=== PATIENT | female | born 1955 | race Caucasian/White ===

== ENCOUNTER 2016-05-22 19:27 | Inpatient (IN) | payer MEDICARE ==
[2016-05-22 19:29] VITALS: BP 167/89; PULSE 105; RESP 15; TEMP 98.9; O2SAT 97
--- NOTE | 2016-05-22 19:58 | PD ---
Physical Exam Date Seen by Provider: May 22, 2016 Time Seen by Provider: 19:53 Narrative Patient seen in triage with Hx Type 2 DM, Renal Insufficiency, and reports of recent hospitalization for Diverticulitis and reports of Gastric Ulcer by Endoscope. Patient states Lower Abdominal Pain is worsening. Patient has nausea , but denies Vomitting. Has had some loose stools and mild dysuria. Patient reports chills, but no fever. Vital signs stable. Patient waiting for bed placement. Data Data Last Documented VS Vital Signs Date Time Temp Pulse Resp B/P Pulse Ox O2 Delivery O2 Flow Rate FiO2 05/22/16 19:29 98.9 105 15 167/89 97 Room Air [facility] Medical Record Reviewed: Yes Supervised Visit with SO: Yes Condition: Stable Albert Bro May 22, 2016 19:57
[2016-05-23] VITALS (9 sets, daily range): BP systolic 105–136; BP diastolic 69–96; PULSE 78–102; RESP 16–19; TEMP 96.2–100.1; O2SAT 92–98
[2016-05-23] MEDS ORDERED: LIPI20TA PO (00:04)
[2016-05-23] MEDS ORDERED: GEMF600T PO (00:04)
[2016-05-23] MEDS ORDERED: OMEP20TA PO (00:04)
[2016-05-23] MEDS ORDERED: BUSP5TAB PO (00:04)
[2016-05-23] MEDS ORDERED: GABA300C5 PO (00:04)
[2016-05-23] MEDS ORDERED: CYMB60CA PO (00:04)
[2016-05-23] MEDS ORDERED: GLIP5TAB8 PO (00:04)
[2016-05-23] MEDS ORDERED: METO50TA PO (00:04)
[2016-05-23] MEDS ORDERED: SYNT25TA PO (00:04)
[2016-05-23] MEDS ORDERED: BUSP10TA PO (00:04)
[2016-05-23] MEDS ORDERED: FOLI5CAP PO (00:04)
[2016-05-23] MEDS ORDERED: SODIUM CHLOR 0.9% 1000 ML INJ 1,000 ML IV SCH (00:16)
[2016-05-23] MEDS ORDERED: SODIUM CHLORIDE 0.9% FLUSH 10 ML FLUSH IV FLUSH PRN ×2 (00:30→02:45)
[2016-05-23] MEDS ORDERED: HYDROmorphone HCL PF 1 MG/ML VIAL IVS ONE (00:30)
[2016-05-23] MEDS ORDERED: ONDANSETRON HCL 4 MG/2 ML VIAL IVP ONE (00:30)
--- NOTE | 2016-05-23 00:44 | PD ---
HPI Chief Complaint: Abdominal Pain Time Seen by Provider: 00:16 Travel History International Travel<30 days: No Contact w/Intl Traveler<30days: No Traveled to known affect area: No History of Present Illness HPI 60-year-old female complains of pain in the left abdomen. It's worse with palpation. She's had diarrhea for 3 weeks. She goes to the bathroom about 4 times per day. She reports nausea. She's had no vomiting. The pain has been present for about a week or so. She was admitted to [facility] for diverticulitis and was discharged shortly thereafter. She reports her symptoms did not improve much. She states today the pain has been much worse. She just started tolerating oral intake yesterday. PFSH Past Medical History Depression: Yes Cardiovascular Problems: Yes Diabetes: Yes Patient Takes Glucophage: No Hypertension: Yes Myocardial Infarction: Yes Thyroid Disease: Yes Triglycerides - High: Yes Tetanus Vaccination: < 5 Years Influenza Vaccination: Yes ?: Not Past Surgical History Hysterectomy: Yes Other Surgery: Yes (carpal tunnel) Social History Alcohol Use: Yes Tobacco Use: Yes Substance Use: No Allergies-Medications (Allergen,Severity, Reaction): Coded Allergies: Sulfamethoxazole (Verified Allergy, Severe, Rash, 05/22/16) Trimethoprim (Verified Allergy, Severe, 05/22/16) Nalbuphine (Verified Allergy, Unknown, 05/22/16) Reported Meds & Prescriptions Reported Meds & Active Scripts Active Reported Gabapentin 300 Mg Cap 300 Mg PO HS Buspirone (Buspirone HCl) 10 Mg Tab 25 Mg PO TID Buspirone (Buspirone HCl) 5 Mg Tab 5 Mg PO BID Synthroid (Levothyroxine Sodium) 25 Mcg Tab 25 Mcg PO DAILY Omeprazole 20 Mg Tab 20 Mg PO DAILY Glipizide 5 Mg Tab 2.5 Mg PO BIDAC Take 30 minutes before a meal Lipitor (Atorvastatin Calcium) 20 Mg Tab 20 Mg PO HS Folic Acid 5 Mg Cap 5 Mg PO DAILY Metoprolol Tartrate 50 Mg Tab 50 Mg PO BID Cymbalta DR (Duloxetine HCl) 60 Mg Capdr 60 Mg PO DAILY Gemfibrozil 600 Mg Tab 600 Mg PO BIDAC Take 30 minutes prior to breakfast and dinner. Review of Systems Except as stated in HPI: all other systems reviewed are Neg Gastrointestinal: Positive: Abdominal Pain Physical Exam Narrative GENERAL: 60-year-old female pleasant well-nourished well-developed SKIN: Focused skin assessment warm/dry. HEAD: Atraumatic. Normocephalic. EYES: Pupils equal and round. No scleral icterus. No injection or drainage. ENT: No nasal bleeding or discharge. Mucous membranes pink and moist. NECK: Trachea midline. No JVD. CARDIOVASCULAR: Regular rate and rhythm. No murmur appreciated. RESPIRATORY: No accessory muscle use. Clear to auscultation. Breath sounds equal bilaterally. GASTROINTESTINAL: Tenderness to palpation primarily in the left lower quadrant. Soft. No sign of peritonitis MUSCULOSKELETAL: No obvious deformities. No clubbing. No cyanosis. No edema. NEUROLOGICAL: Awake and alert. No obvious cranial nerve deficits. Motor grossly within normal limits. Normal speech. PSYCHIATRIC: Appropriate mood and affect; insight and judgment normal. Data Data Last Documented VS Vital Signs Date Time Temp Pulse Resp B/P Pulse Ox O2 Delivery O2 Flow Rate FiO2 05/23/16 01:20 97 Nasal Cannula 2 05/22/16 23:56 18 05/22/16 19:29 98.9 105 167/89 Vital signs reviewed Orders Complete Blood Count With Diff (05/23/16 00:16) Comprehensive Metabolic Panel (05/23/16 00:16) Lipase (05/23/16 00:16) Ct Abd/Pel W Iv Contrast(Rout) (05/23/16 00:16) Iv Access Insert/Monitor (05/23/16 00:16) Ecg Monitoring (05/23/16 00:16) Oximetry (05/23/16 00:16) Ondansetron Inj (Zofran Inj) (05/23/16 00:30) Sodium Chlor 0.9% 1000 Ml Inj (Ns 1000 M (05/23/16 00:16) Sodium Chloride 0.9% Flush (Ns Flush) (05/23/16 00:30) Hydromorphone Pf Inj (Dilaudid Pf Inj) (05/23/16 00:30) Iohexol 350 Inj (Omnipaque 350 Inj) (05/23/16 02:14) Piperacil-Tazo 3.375 Gm Premix (Zosyn 3. (05/23/16 02:45) Admit Order (Ed Use Only) (05/23/16 02:37) Labs Laboratory Tests Test 05/23/16 00:22 White Blood Count 13.3 TH/MM3 Red Blood Count 4.09 MIL/MM3 Hemoglobin 12.5 GM/DL Hematocrit 36.5 % Mean Corpuscular Volume 89.2 FL Mean Corpuscular Hemoglobin 30.6 PG Mean Corpuscular Hemoglobin 34.3 % Concent Red Cell Distribution Width 13.5 % Platelet Count 425 TH/MM3 Mean Platelet Volume 7.9 FL Neutrophils (%) (Auto) 77.2 % Lymphocytes (%) (Auto) 10.1 % Monocytes (%) (Auto) 8.5 % Eosinophils (%) (Auto) 3.8 % Basophils (%) (Auto) 0.4 % Neutrophils # (Auto) 10.3 TH/MM3 Lymphocytes # (Auto) 1.3 TH/MM3 Monocytes # (Auto) 1.1 TH/MM3 Eosinophils # (Auto) 0.5 TH/MM3 Basophils # (Auto) 0.1 TH/MM3 CBC Comment DIFF FINAL Differential Comment Sodium Level 138 MEQ/L Potassium Level 3.7 MEQ/L Chloride Level 104 MEQ/L Carbon Dioxide Level 24.9 MEQ/L Anion Gap 9 MEQ/L Blood Urea Nitrogen 13 MG/DL Creatinine 1.05 MG/DL Estimat Glomerular Filtration 54 ML/MIN Rate Random Glucose 136 MG/DL Calcium Level 9.5 MG/DL Total Bilirubin 0.4 MG/DL Aspartate Amino Transf 32 U/L (AST/SGOT) Alanine Aminotransferase 21 U/L (ALT/SGPT) Alkaline Phosphatase 106 U/L Total Protein 7.8 GM/DL Albumin 3.2 GM/DL Lipase 402 U/L MDM Medical Decision Making Medical Screen Exam Complete: Yes Emergency Medical Condition: Yes Differential Diagnosis Constipation, Gastritis, Acute Cholecystitis, Biliary Colic, Pancreatitis, KIRK , Hepatitis, Bowel Obstruction, Cystitis, Mesenteric Ischemia, AAA, Appendicitis , Renal Stone/Hydronephrosis, GERD, perforated viscous Narrative Course CBC & BMP Diagram 05/23/16 00:22 LFTs normal Lipase 402 Last 24 hours Impressions Abdomen/Pelvis CT 05/23/16 0016 Signed Impressions: Service Date/Time: Monday, May 23, 2016 02:05 - CONCLUSION: 1. Abnormal sigmoid colon with wall thickening and pericolonic inflammatory change most likely representing a colitis or possibly diverticulitis. No abscess, significant free fluid, or free air is present. 2. Mild hepatomegaly with heterogeneous liver enhancement. 3. Coronary artery calcification and severe atherosclerotic disease of the aorta. Wilton Bergeron MD Patient has diverticulitis. Zosyn started here. IV fluids and Zofran started. Case discussed with Dr. Leggett. Diagnosis Primary Impression: Diverticulitis Qualified Code: K57.32 - Diverticulitis of large intestine without perforation or abscess without bleeding Additional Impression: Pancreatitis Admitting Information Admitting Physician Requests: Admit Condition: Stable Kade Harvey MD May 23, 2016 00:44
[2016-05-23 00:46] LABS: AUTOMATED NEUTROPHIL # 10.3 TH/MM3 (1.8-7.7); BASOPHIL # 0.1 TH/MM3 (0-0.2); BASOPHIL % 0.4 % (0.0-2.0); EOSINOPHIL # 0.5 TH/MM3 (0-0.4); EOSINOPHIL % 3.8 % (0.0-4.0); HEMATOCRIT 36.5 % (35.0-46.0); HEMO FLAGS DIFF FINAL; LYMPH % 10.1 % (9.0-44.0); LYMPHOCYTE # 1.3 TH/MM3 (1.0-4.8); MEAN CELL VOLUME 89.2 FL (80.0-100.0); MEAN CORPUSCULAR HEMOGLOBIN 30.6 PG (27.0-34.0); MEAN CORPUSCULAR HGB CONC 34.3 % (32.0-36.0); MONO % 8.5 % (0.0-8.0); NEUT % 77.2 % (16.0-70.0); PLATELET COUNT 425 TH/MM3 (150-450); RED BLOOD COUNT 4.09 MIL/MM3 (4.00-5.30); RED CELL DISTRIBUTION WIDTH 13.5 % (11.6-17.2); WHITE BLOOD COUNT 13.3 TH/MM3 (4.0-11.0)
[2016-05-23 00:58] LABS: ANION GAP 9 MEQ/L (5-15); AST (GOT) 32 U/L (15-37); BICARBONATE 24.9 MEQ/L (21.0-32.0); BLOOD UREA NITROGEN 13 MG/DL (7-18); CHLORIDE 104 MEQ/L (98-107); GLOMERULAR FILTRATION RATE 54 ML/MIN (>89); POTASSIUM 3.7 MEQ/L (3.5-5.1); SODIUM (NA) 138 MEQ/L (136-145)
[2016-05-23 01:06] LABS: ALKALINE PHOSPHATASE 106 U/L (45-117); ALT (GPT) 21 U/L (10-53); TOTAL BILIRUBIN ADULT 0.4 MG/DL (0.2-1.0)
[2016-05-23] MEDS ORDERED: IOHEXOL 350 MG/ML 10 ML VIAL (for RAD DIAG) IV ONE (02:14)
--- NOTE | 2016-05-23 02:26 | RADRPT ---
EXAM DATE/TIME: 05/23/2016 02:05 [facility] COMPARISON: No previous studies available for comparison. INDICATIONS : Lower abdominal pain. IV CONTRAST: 88 cc Omnipaque 350 (iohexol) IV ORAL CONTRAST: No oral contrast ingested. RADIATION DOSE: 12.64 CTDIvol (mGy) MEDICAL HISTORY : Hypertension. Diabetes mellitus type 2. Diverticulitis. SURGICAL HISTORY : Hysterectomy. ENCOUNTER: Initial ACUITY: 1 day PAIN SCALE: 5/10 LOCATION: lower quadrant abdomen TECHNIQUE: Volumetric scanning of the abdomen and pelvis was performed. Using automated exposure control and ad justment of the mA and/or kV according to patient size, radiation dose was kept as low as reasonably achievable to obtain optimal diagnostic quality images. FINDINGS: LOWER LUNGS: The visualized lower lungs are clear. There is coronary artery calcification. LIVER: The liver measures 19.5 cm in length and demonstrates heterogeneous density. No focal lesion is seen. There is no dilation of the biliary tree. No calcified gallstones. SPLEEN: Normal size without lesion. PANCREAS: Within normal limits. KIDNEYS: Normal in size and shape. There is no mass, stone or hydronephrosis. There is a 5 mm low-density les ion at the lower pole the right kidney that is too small to characterize. ADRENAL GLANDS: Within normal limits. VASCULAR: There is no aortic aneurysm. There is severe atherosclerotic disease. BOWEL/MESENTERY: The stomach and small bowel demonstrate no acute abnormality. There is no free intraperitoneal air o r fluid. The proximal sigmoid colon is abnormal. A 10 cm length segment demonstrates a normal wall th ickening and pericolonic inflammation. A few diverticula are visualized in this area. ABDOMINAL WALL: Within normal limits. RETROPERITONEUM: There is no lymphadenopathy. BLADDER: No wall thickening or mass. REPRODUCTIVE: The uterus is absent. INGUINAL: There is no lymphadenopathy or hernia. MUSCULOSKELETAL: There are degenerative changes of the lumbar spine. CONCLUSION: 1. Abnormal sigmoid colon with wall thickening and pericolonic inflammatory change most likely repres enting a colitis or possibly diverticulitis. No abscess, significant free fluid, or free air is prese nt. 2. Mild hepatomegaly with heterogeneous liver enhancement. 3. Coronary artery calcification and severe atherosclerotic disease of the aorta. Wilton Bergeron MD on May 23, 2016 at 2:19 Board Certified Radiologist. This report was verified electronically.
[2016-05-23] MEDS ORDERED: ONDANSETRON HCL 4 MG/2 ML VIAL IVP PRN (02:45)
[2016-05-23] MEDS ORDERED: NALOXONE HCL 0.4 MG/ML AMP IV PRN (02:45)
[2016-05-23] MEDS ORDERED: PIPERACIL-TAZO 3.375 GM PREMIX 50 ML IV ONE (02:45)
[2016-05-23] MEDS ORDERED: HYDROmorphone HCL PF 1 MG/ML VIAL IV PUSH PRN ×2 (02:45→06:45)
[2016-05-23] MEDS: SODIUM CHLOR 0.9% 1000 ML INJ 1,000 ML IV SCH ×3 (03:10→22:39)
--- NOTE | 2016-05-23 05:00 | HHI.HP ---
[facility] Non-Staff Admission Diagnosis Diverticulitis Diagnoses: Chief Complaint: Abdominal pain, diarrhea Travel History International Travel<30 Days: No Contact w/Intl Traveler <30 Da: No Traveled to Known Affected Are: No History of Present Illness 60 y/o female with history of HTN, DM, HLD, Hypothyroid, gerd and neuropathy presented to the ED with complaints of severe abdominal pain for 1 week. Patient was admitted at [facility] for 5 days a week ago for diverticulitis and discharged home with no medications. Since discharge she has continued to have constant diarrhea, severe LLQ abdominal pain and vomiting. When she was first admitted to [facility] she had black color and red color stools, and states today that he started to get dark again. She states she had an EGD performed at [facility], but was only told she had an irritated ulcer. She sees Dr. Ford for outpatient GI, and states last colonoscopy was one year ago, with no problems. Review of Systems Constitutional: COMPLAINS OF: Fever, DENIES: Chills Cardiovascular: DENIES: Chest pain, Lower Extremity Edema Gastrointestinal: COMPLAINS OF: Abdominal pain, Black stools, Bloody stools, Diarrhea, Nausea, DENIES: Vomiting Genitourinary: DENIES: Hematuria, Dysuria Musculoskeletal: DENIES: Back pain, Neck pain Integumentary: DENIES: Rash Hematologic/lymphatic: DENIES: Lymphadenopathy Immunologic/allergic: DENIES: Urticaria Neurologic: DENIES: Headache Past Family Social History Past Medical History HTN OK x2 CHF DM GERD Hypothyroidism Neuropathy COPD Hep B Past Surgical History Hysterectomy Carpel tunnel Cervical Fusion Wired Jaw Reported Medications Reported Meds & Active Scripts Active Reported Gabapentin 300 Mg Cap 300 Mg PO HS Buspirone (Buspirone HCl) 10 Mg Tab 25 Mg PO TID Buspirone (Buspirone HCl) 5 Mg Tab 5 Mg PO BID Synthroid (Levothyroxine Sodium) 25 Mcg Tab 25 Mcg PO DAILY Omeprazole 20 Mg Tab 20 Mg PO DAILY Glipizide 5 Mg Tab 2.5 Mg PO BIDAC Take 30 minutes before a meal Lipitor (Atorvastatin Calcium) 20 Mg Tab 20 Mg PO HS Folic Acid 5 Mg Cap 5 Mg PO DAILY Metoprolol Tartrate 50 Mg Tab 50 Mg PO BID Cymbalta DR (Duloxetine HCl) 60 Mg Capdr 60 Mg PO DAILY Gemfibrozil 600 Mg Tab 600 Mg PO BIDAC Take 30 minutes prior to breakfast and dinner. Allergies: Coded Allergies: Sulfamethoxazole (Verified Allergy, Severe, Rash, 05/22/16) Trimethoprim (Verified Allergy, Severe, 05/22/16) Nalbuphine (Verified Allergy, Unknown, 05/22/16) Active Ordered Medications Current Medications Medications (Trade) Dose Ordered Sig/Alfredo Route Start Time Stop Time Status Last Admin (NS 1000 ml Inj) 1,000 ml @ 100 mls/hr Q10H IV 05/23/16 02:39 05/23/16 03:10 (NS Flush) 2 ml UNSCH PRN IV FLUSH 05/23/16 02:45 (NS Flush) 2 ml BID IV FLUSH 05/23/16 09:00 (Zofran Inj) 4 mg Q6H PRN IVP 05/23/16 02:45 (Lovenox Inj) 40 mg Q24H SQ 05/23/16 09:00 Naloxone HCl 0.4 mg 0.4 mg UNSCH PRN IV 05/23/16 02:45 (Zosyn 4.5 Gm Premix) 100 ml @ 200 mls/hr Q6H IV 05/23/16 09:00 (Dilaudid Pf Inj) 0.2 mg Q4H PRN IV PUSH 05/23/16 02:45 05/23/16 04:25 Family History Mom: Diverticulitis, DM Maternal Grandma: CVA Social History Tobacco use: 1/2 PPD Alcohol use: Denies, Quit many years ago, prior she was a binge drinker Illicit drug use: Denies Physical Exam Vital Signs Vital Signs Date Time Temp Pulse Resp B/P Pulse Ox O2 Delivery O2 Flow Rate FiO2 05/23/16 03:12 98.4 83 18 131/76 95 Room Air 05/23/16 01:20 97 Nasal Cannula 2 05/22/16 23:56 18 05/22/16 19:29 98.9 105 15 167/89 97 Room Air Physical Exam GENERAL: This is a well-nourished, well-developed patient, in severe pain. SKIN: No rashes, ecchymoses or lesions. Cool and dry. HEAD: Atraumatic. Normocephalic. No temporal or scalp tenderness. EYES: Pupils equal round and reactive. Extraocular motions intact. ENT: Nose without bleeding, purulent drainage or septal hematoma. Airway patent. NECK: Trachea midline. No JVD or lymphadenopathy. Supple, nontender, no meningeal signs. CARDIOVASCULAR: Regular rate and rhythm without murmurs, gallops, or rubs. RESPIRATORY: Clear to auscultation. Breath sounds equal bilaterally. No wheezes , rales, or rhonchi. GASTROINTESTINAL: Abdomen soft, LLQ severe tenderness, nondistended. No hepato- splenomegaly, or palpable masses. MUSCULOSKELETAL: Extremities without clubbing, cyanosis, or edema. No joint tenderness, effusion, or edema noted. No calf tenderness. NEUROLOGICAL: Awake and alert. Motor and sensory grossly within normal limits. Normal speech. Laboratory Laboratory Tests Test 05/23/16 00:22 White Blood Count 13.3 Red Blood Count 4.09 Hemoglobin 12.5 Hematocrit 36.5 Mean Corpuscular Volume 89.2 Mean Corpuscular Hemoglobin 30.6 Mean Corpuscular Hemoglobin 34.3 Concent Red Cell Distribution Width 13.5 Platelet Count 425 Mean Platelet Volume 7.9 Neutrophils (%) (Auto) 77.2 Lymphocytes (%) (Auto) 10.1 Monocytes (%) (Auto) 8.5 Eosinophils (%) (Auto) 3.8 Basophils (%) (Auto) 0.4 Neutrophils # (Auto) 10.3 Lymphocytes # (Auto) 1.3 Monocytes # (Auto) 1.1 Eosinophils # (Auto) 0.5 Basophils # (Auto) 0.1 CBC Comment DIFF FINAL Differential Comment Sodium Level 138 Potassium Level 3.7 Chloride Level 104 Carbon Dioxide Level 24.9 Anion Gap 9 Blood Urea Nitrogen 13 Creatinine 1.05 Estimat Glomerular Filtration 54 Rate Random Glucose 136 Calcium Level 9.5 Total Bilirubin 0.4 Aspartate Amino Transf 32 (AST/SGOT) Alanine Aminotransferase 21 (ALT/SGPT) Alkaline Phosphatase 106 Total Protein 7.8 Albumin 3.2 Lipase 402 Result Diagram: 05/23/16 0022 05/23/16 0022 Imaging Last Impressions Abdomen/Pelvis CT 05/23/16 0016 Signed Impressions: Service Date/Time: Monday, May 23, 2016 02:05 - CONCLUSION: 1. Abnormal sigmoid colon with wall thickening and pericolonic inflammatory change most likely representing a colitis or possibly diverticulitis. No abscess, significant free fluid, or free air is present. 2. Mild hepatomegaly with heterogeneous liver enhancement. 3. Coronary artery calcification and severe atherosclerotic disease of the aorta. Witlon Bergeron MD Assessment and Plan Problem List: (1) Diverticulitis ICD Code: K57.92 Status: Acute (2) Leukocytosis ICD Code: D72.829 Status: Acute (3) Pancreatitis ICD Code: K85.90 Status: Acute (4) Black stools ICD Code: K92.1 Status: Acute Assessment and Plan 60 y/o female with history of HTN, DM, HLD, Hypothyroid, gerd and neuropathy presented to the ED with complaints of severe abdominal pain for 1 week. Diverticulitis/pancreatitis Images reviewed: Abdominal/pelvis CT shows abnormal sigmoid colon with wall thickening and pericolonic inflammatory change most likely representing a colitis or possibly diverticulitis. No abscess, significant free fluid, or free air is present. Labs: Lipase 402 -Supportive IVF -Pain management with IV Dilaudid -Zosyn IV -Lipase in a.m. -Nothing by mouth, antiemetics as needed Leukocytosis Labs: WBCs 13.3, neutrophils 77% -Continue IV antibiotics as above -CBC in a.m. Black stools, patient states on and off black colored stools Labs: Hgb: 12.5 -Occult stool -Protonix IV -Serial H&H DVT prophylaxis: Lovenox Written by Shanice LEUNG, acting as scribe for Dr. Leggett on 05/23/16 at 0445. All or portions of this note were transcribed by scribe [Shanice LEUNG]. I , Dr. Leslie Leggett personally performed the history, physical exam, and medical decision making; and confirmed the accuracy of the information in the transcribed note. Authenticated by Dr. Leslie Leggett on 05/23/16 at 0445. Discussed Condition With Patient, RN and ED physician Physician Certification 2 Midnight Certification Type: Admission for Inpatient Services Order for Inpatient Services The services are ordered in accordance with Medicare regulations or non- Medicare payer requirements, as applicable. In the case of services not specified as inpatient-only, they are appropriately provided as inpatient services in accordance with the 2-midnight benchmark. Estimated LOS (days): 2 days is the estimated time the patient will need to remain in the hospital, assuming treatment plan goals are met and no additional complications. Post-Hospital Plan: Home Problem Qualifiers (1) Diverticulitis: Qualified Code: K57.32 - Diverticulitis of large intestine without perforation or abscess without bleeding (2) Pancreatitis: Shanice Julian May 23, 2016 05:00 Leslie Leggett MD May 23, 2016 08:08
[2016-05-23] MEDS ORDERED: HYDROmorphone HCL PF 1 MG/ML VIAL IV PUSH ONE (05:15)
[2016-05-23] MEDS: PANTOPRAZOLE SODIUM 40 MG VIAL IV PUSH SCH ×2 (05:55→15:43)
[2016-05-23 06:03] LABS: AUTOMATED NEUTROPHIL # 6.2 TH/MM3 (1.8-7.7); BASOPHIL % 0.4 % (0.0-2.0); EOSINOPHIL # 0.4 TH/MM3 (0-0.4); EOSINOPHIL % 4.3 % (0.0-4.0); HEMATOCRIT 35.2 % (35.0-46.0); HEMO FLAGS DIFF FINAL; LYMPH % 13.5 % (9.0-44.0); LYMPHOCYTE # 1.1 TH/MM3 (1.0-4.8); MEAN CELL VOLUME 88.9 FL (80.0-100.0); MEAN CORPUSCULAR HEMOGLOBIN 30.6 PG (27.0-34.0); MEAN CORPUSCULAR HGB CONC 34.5 % (32.0-36.0); MONO % 7.2 % (0.0-8.0); NEUT % 74.6 % (16.0-70.0); PLATELET COUNT 405 TH/MM3 (150-450); RED BLOOD COUNT 3.96 MIL/MM3 (4.00-5.30); RED CELL DISTRIBUTION WIDTH 13.4 % (11.6-17.2); WHITE BLOOD COUNT 8.3 TH/MM3 (4.0-11.0)
[2016-05-23 06:28] LABS: ALKALINE PHOSPHATASE 99 U/L (45-117); ALT (GPT) 21 U/L (10-53); ANION GAP 8 MEQ/L (5-15); AST (GOT) 28 U/L (15-37); BICARBONATE 24.9 MEQ/L (21.0-32.0); BLOOD UREA NITROGEN 14 MG/DL (7-18); CHLORIDE 105 MEQ/L (98-107); GLOMERULAR FILTRATION RATE 50 ML/MIN (>89); SODIUM (NA) 138 MEQ/L (136-145); TOTAL BILIRUBIN ADULT 0.4 MG/DL (0.2-1.0)
[2016-05-23] MEDS: PIPERACIL-TAZO 4.5 GM PREMIX 100 ML IV SCH ×2 (08:08→15:38)
[2016-05-23] MEDS: SODIUM CHLORIDE 0.9% FLUSH 10 ML FLUSH IV FLUSH SCH ×2 (08:09→20:20)
[2016-05-23] MEDS ORDERED: ENOXAPARIN SODIUM 40 MG/0.4 ML SYRINGE SQ SCH (09:00)
[2016-05-23] MEDS ORDERED: FOLIC ACID 1 MG TAB PO SCH (09:00)
[2016-05-23] MEDS: DULoxetine HCl DR 60 MG CAP PO SCH (09:32)
[2016-05-23] MEDS: METOPROLOL TARTRATE 50 MG TAB PO SCH ×2 (09:32→20:21)
[2016-05-23] MEDS: busPIRone HCL 5 MG TAB PO SCH ×2 (09:32→20:21)
[2016-05-23] MEDS: PANTOPRAZOLE SOD 20 MG DELAYED RELEASE TAB PO SCH (09:32)
[2016-05-23] MEDS: LEVOTHYROXINE SODIUM 25 MCG TAB PO SCH (09:34)
[2016-05-23 11:36] LABS: HEMATOCRIT 36.7 % (35.0-46.0); REVIEW FLAG FINAL
--- NOTE | 2016-05-23 11:48 | HHI.PR ---
Subjective Remarks f/u diverticulitis Patient was found sitting comfortably in bed putting on lotion. She stated that she contused abdominal pain. Patient stated that she was feels like she needs a bowel movement but she hasn't had a bowel movement. She stated that when she has a bowel movement stools are soft. She denies any diarrhea. Patient denied nausea vomiting. She denied any black stools. Objective Vitals Vital Signs Date Time Temp Pulse Resp B/P Pulse Ox O2 Delivery O2 Flow Rate FiO2 05/23/16 09:34 89 17 125/78 98 Nasal Cannula 2 05/23/16 07:09 98.1 88 17 131/76 98 Nasal Cannula 2 05/23/16 07:09 18 05/23/16 07:09 98.0 88 16 131/76 98 Nasal Cannula 2 05/23/16 07:04 17 05/23/16 07:03 17 05/23/16 07:03 17 05/23/16 05:55 98.1 78 18 136/96 98 Nasal Cannula 2 05/23/16 03:12 98.4 83 18 131/76 95 Room Air 05/23/16 01:20 97 Nasal Cannula 2 05/22/16 23:56 18 05/22/16 19:29 98.9 105 15 167/89 97 Room Air Result Diagram: 05/23/16 1130 05/23/16 0539 Objective Remarks GENERAL: in NAD CARDIOVASCULAR: Regular rate and rhythm without murmurs, gallops, or rubs. RESPIRATORY: Breath sounds equal bilaterally. No accessory muscle use. GASTROINTESTINAL: Abdomen soft, positive for diffuse mild tenderness in the abdomen, nondistended. MUSCULOSKELETAL: No cyanosis, or edema. BACK: Nontender without obvious deformity. No CVA tenderness. Medications and IVs Current Medications Ondansetron HCl 4 mg 4 mg ONCE ONCE IVP Last administered on 05/23/16 00:30; Start 05/23/16 at 00:30; Stop 05/23/16 at 00:31; Status DC Sodium Chloride (NS 1000 ml Inj) 1,000 ml @ 1,000 mls/hr Q1H IV Last administered on 05/23/16 00:29; Start 05/23/16 at 00:16; Stop 05/23/16 at 01:15 ; Status DC Sodium Chloride (NS Flush) 2 ml UNSCH PRN IV FLUSH FLUSH AFTER USING IV ACCESS ; Start 05/23/16 at 00:30; Stop 05/23/16 at 02:47; Status DC Hydromorphone HCl (Dilaudid Pf Inj) 1 mg ONCE ONCE IVS Last administered on 00:30; Start 05/23/16 at 00:30; Stop 05/23/16 at 00:31; Status DC Iohexol 88 ml 88 ml STK-MED ONCE IV Last administered on 05/23/16 02:14; Start 05/23/16 at 02:14; Stop 05/23/16 at 02:15; Status DC Piperacillin Sod/ Tazobactam Sod 50 ml @ 100 mls/hr ONCE ONCE IV Last administered on 05/23/16 03:11; Start 05/23/16 at 02:45; Stop 05/23/16 at 03:14 ; Status DC Sodium Chloride (NS 1000 ml Inj) 1,000 ml @ 100 mls/hr Q10H IV Last administered on 05/23/16 03:10; Start 05/23/16 at 02:39 Sodium Chloride (NS Flush) 2 ml UNSCH PRN IV FLUSH FLUSH AFTER USING IV ACCESS ; Start 05/23/16 at 02:45 Sodium Chloride (NS Flush) 2 ml BID IV FLUSH ; Start 05/23/16 at 09:00 Ondansetron HCl (Zofran Inj) 4 mg Q6H PRN IVP NAUSEA OR VOMITING; Start at 02:45 Enoxaparin Sodium (Lovenox Inj) 40 mg Q24H SQ Last administered on 05/23/16 08 :08; Start 05/23/16 at 09:00 Naloxone HCl 0.4 mg 0.4 mg UNSCH PRN IV SEE LABEL COMMENTS; Start 05/23/16 at 02:45 Piperacillin Sod/ Tazobactam Sod (Zosyn 4.5 Gm Premix) 100 ml @ 200 mls/hr Q6H IV Last administered on 05/23/16 08:08; Start 05/23/16 at 09:00 Hydromorphone HCl (Dilaudid Pf Inj) 0.2 mg Q4H PRN IV PUSH PAIN >5 Last administered on 05/23/16 04:25; Start 05/23/16 at 02:45; Stop 05/23/16 at 05:04 ; Status DC Pantoprazole Sodium (Protonix Inj) 40 mg Q12H IV PUSH Last administered on 05/23 05:55; Start 05/23/16 at 05:00 Hydromorphone HCl (Dilaudid Pf Inj) 1 mg Q4H PRN IV PUSH PAIN >5 Last administered on 05/23/16 11:23; Start 05/23/16 at 06:45 Hydromorphone HCl (Dilaudid Pf Inj) 1 mg ONCE ONCE IV PUSH Last administered on 05/23/16 05:55; Start 05/23/16 at 05:15; Stop 05/23/16 at 05:16; Status DC Atorvastatin Calcium (Lipitor) 20 mg HS PO ; Start 05/23/16 at 21:00 Buspirone HCl (Buspar) 5 mg BID PO Last administered on 05/23/16 09:32; Start 05/23/16 at 09:00 Duloxetine HCl (Cymbalta Dr) 60 mg DAILY PO Last administered on 05/23/16 09: 32; Start 05/23/16 at 09:00 Folic Acid (Folate) 5 mg DAILY PO ; Start 05/23/16 at 09:00; Status UNV Gabapentin (Neurontin) 300 mg HS PO ; Start 05/23/16 at 21:00 Gemfibrozil (Lopid) 600 mg BIDAC PO ; Start 05/23/16 at 16:00 Glipizide (Glucotrol) 2.5 mg BIDAC PO ; Start 05/23/16 at 16:00 Levothyroxine Sodium (Synthroid) 25 mcg DAILY@06 PO Last administered on 09:34; Start 05/23/16 at 09:00 Metoprolol Tartrate (Lopressor) 50 mg BID PO Last administered on 05/23/16 09: 32; Start 05/23/16 at 09:00 Pantoprazole Sodium (Protonix) 20 mg DAILY PO Last administered on 05/23/16 09 :32; Start 05/23/16 at 09:00 A/P Problem List: (1) Diverticulitis ICD Code: K57.92 Status: Acute (2) Leukocytosis ICD Code: D72.829 Status: Acute (3) Pancreatitis ICD Code: K85.90 Status: Acute (4) Black stools ICD Code: K92.1 Status: Acute Assessment and Plan 60 y/o female with history of HTN, DM, HLD, Hypothyroid, gerd and neuropathy presented to the ED with complaints of severe abdominal pain for 1 week. Diverticulitis -Abdominal/pelvis CT shows abnormal sigmoid colon with wall thickening and pericolonic inflammatory change most likely representing a colitis or possibly diverticulitis. No abscess, significant free fluid, or free air is present. -Continue with IV Zosyn. Continue with supportive care with IV fluids and pain management. -Currently patient is nothing by mouth but will allow clear liquid diet and advance as tolerated. Pancreatitis -Mild elevation of lipase. -Continue with supportive care as above. Leukocytosis - WBCs 13.3, neutrophils 77% -Resolved secondary to hemoconcentration. Questionable Black stool -She had no bowel movement while hospitalized several still pending Hemoccult stool. -Hemoglobin then remained stable. -On IV Protonix. -If hemoglobin remains stable patient can be scoped as outpatient. DVT prophylaxis -Due to questionable black stools will discontinue Lovenox and start SCDs. Problem Qualifiers (1) Diverticulitis: Qualified Code: K57.32 - Diverticulitis of large intestine without perforation or abscess without bleeding (2) Pancreatitis: Dinora Vasquez MD May 23, 2016 11:47
[2016-05-23] MEDS ORDERED: methylPREDNISolone SOD SUCC 40 MG/1 ML VIAL IV PUSH SCH (13:30)
[2016-05-23] MEDS: diphenhydrAMINE HCL 50 MG/ML VIAL IV PUSH SCH ×2 (13:42→20:20)
[2016-05-23] MEDS: GEMFIBROZIL 600 MG TAB PO SCH (15:43)
[2016-05-23] MEDS: glipiZIDE 5 MG TAB PO SCH (15:47)
[2016-05-23] MEDS: FOLIC ACID 1 MG TAB PO SCH (15:48)
[2016-05-23] MEDS ORDERED: EPINEPHrine HCL (1:1000) 1 MG/ML VIAL IM ONE (17:30)
[2016-05-23] MEDS ORDERED: CIPROFLOXACIN 400 MG PREMIX 200 ML IV SCH (18:00)
[2016-05-23 19:12] LABS: HEMATOCRIT 33.4 % (35.0-46.0); REVIEW FLAG FINAL
[2016-05-23] MEDS ORDERED: ERTAPENEM SODIUM 1000 MG VIAL IM SCH (19:15)
[2016-05-23] MEDS ORDERED: metroNIDAZOLE 500 MG INJ 100 ML IV SCH (20:00)
[2016-05-23] MEDS: methylPREDNISolone SOD SUCC 40 MG/1 ML VIAL IV PUSH SCH (20:20)
[2016-05-23] MEDS: ATORVASTATIN 20 MG TAB PO SCH (20:21)
[2016-05-23] MEDS: GABAPENTIN 300 MG CAP PO SCH (20:21)
[2016-05-23] MEDS: ACETAMINOPHEN/HYDROcodone 325 MG/5 MG TAB PO PRN (20:32)
[2016-05-23] MEDS: ERTAPENEM 1,000 MG/NS 100 ML IV SCH ×2 (22:21)
[2016-05-24] VITALS: BP 104/70; PULSE 88; RESP 18; TEMP 96; O2SAT 94
[2016-05-24] MEDS: ACETAMINOPHEN/HYDROcodone 325 MG/5 MG TAB PO PRN ×3 (03:50→23:03)
[2016-05-24 04:00] VITALS: BP 126/98; PULSE 82; RESP 19; TEMP 97.2; O2SAT 92
[2016-05-24] MEDS: diphenhydrAMINE HCL 50 MG/ML VIAL IV PUSH SCH ×2 (05:05→22:42)
[2016-05-24] MEDS: LEVOTHYROXINE SODIUM 25 MCG TAB PO SCH (05:06)
[2016-05-24] MEDS: glipiZIDE 5 MG TAB PO SCH ×2 (05:06→15:32)
[2016-05-24] MEDS: GEMFIBROZIL 600 MG TAB PO SCH ×2 (05:06→15:32)
[2016-05-24] MEDS: SODIUM CHLOR 0.9% 1000 ML INJ 1,000 ML IV SCH ×2 (05:11→13:55)
[2016-05-24 07:44] LABS: HEMATOCRIT 33.3 % (35.0-46.0); MEAN CELL VOLUME 91.1 FL (80.0-100.0); MEAN CORPUSCULAR HEMOGLOBIN 29.8 PG (27.0-34.0); MEAN CORPUSCULAR HGB CONC 32.7 % (32.0-36.0); PLATELET COUNT 363 TH/MM3 (150-450); RED BLOOD COUNT 3.65 MIL/MM3 (4.00-5.30); RED CELL DISTRIBUTION WIDTH 13.8 % (11.6-17.2); REVIEW FLAG FINAL; WHITE BLOOD COUNT 21.7 TH/MM3 (4.0-11.0)
[2016-05-24 08:00] VITALS: BP 105/73; PULSE 71; RESP 20; TEMP 97.4; O2SAT 93
[2016-05-24 08:09] LABS: BICARBONATE 19.1 MEQ/L (21.0-32.0); POTASSIUM 4.2 MEQ/L (3.5-5.1)
[2016-05-24] MEDS: PANTOPRAZOLE SOD 20 MG DELAYED RELEASE TAB PO SCH (10:03)
[2016-05-24] MEDS: DULoxetine HCl DR 60 MG CAP PO SCH (10:03)
[2016-05-24] MEDS: FOLIC ACID 1 MG TAB PO SCH (10:03)
[2016-05-24] MEDS: busPIRone HCL 5 MG TAB PO SCH ×2 (10:03→22:42)
[2016-05-24] MEDS: METOPROLOL TARTRATE 50 MG TAB PO SCH ×2 (10:04→22:42)
[2016-05-24] MEDS: SODIUM CHLORIDE 0.9% FLUSH 10 ML FLUSH IV FLUSH SCH ×2 (10:05→22:43)
[2016-05-24] MEDS: methylPREDNISolone SOD SUCC 40 MG/1 ML VIAL IV PUSH SCH ×2 (10:05→22:41)
[2016-05-24 12:00] VITALS: BP 130/85; PULSE 76; RESP 20; TEMP 96.6; O2SAT 99
--- NOTE | 2016-05-24 13:17 | HHI.PR ---
Subjective Remarks Patient seen and examined this am, vitals are stable and patient is afebrile. Saturating 93% on room air. Reporting abdominal pain. She feels like she needs to have a bowel movement. She feels like her abdominal pain is worse today than yesterday. She is consuming sips of water clear liquids by mouth. Objective Vital Signs Date Time Temp Pulse Resp B/P Pulse Ox O2 Delivery O2 Flow Rate FiO2 05/24/16 08:00 97.4 71 20 105/73 93 05/24/16 04:50 18 05/24/16 04:00 97.2 82 19 126/98 92 05/24/16 00:00 96.0 88 18 104/70 94 05/23/16 20:00 96.2 85 19 128/82 92 05/23/16 16:00 99.0 102 16 105/73 93 05/23/16 14:00 100.1 91 16 113/69 93 I/O 05/23/16 05/23/16 05/23/16 05/24/16 05/24/16 05/24/16 07:00 15:00 23:00 07:00 15:00 23:00 Intake Total 240 ml 240 ml Balance 240 ml 240 ml Intake Oral 240 ml 240 ml # Voids 1 3 2 # Bowel Movements 1 Result Diagram: 05/24/16 0600 05/24/16 0600 Imaging Last Impressions Abdomen/Pelvis CT 05/23/16 0016 Signed Impressions: Service Date/Time: Monday, May 23, 2016 02:05 - CONCLUSION: 1. Abnormal sigmoid colon with wall thickening and pericolonic inflammatory change most likely representing a colitis or possibly diverticulitis. No abscess, significant free fluid, or free air is present. 2. Mild hepatomegaly with heterogeneous liver enhancement. 3. Coronary artery calcification and severe atherosclerotic disease of the aorta. Wilton Bergeron MD Objective Remarks GENERAL: Uncomfortable-appearing SKIN: Warm and dry. HEAD: Normocephalic. EYES: No scleral icterus. No injection or drainage. NECK: Supple, trachea midline. No JVD or lymphadenopathy. CARDIOVASCULAR: Regular rate and rhythm without murmurs, gallops, or rubs. RESPIRATORY: Breath sounds equal bilaterally. No accessory muscle use. GASTROINTESTINAL: Abdomen soft, tenderness to palpation of lower abdominal quadrant, left worse than right. There is no rebound or guarding. MUSCULOSKELETAL: No cyanosis, or edema. BACK: Nontender without obvious deformity. A/P Problem List: (1) Diverticulitis ICD Code: K57.92 (2) Leukocytosis ICD Code: D72.829 (3) Pancreatitis ICD Code: K85.90 (4) Black stools ICD Code: K92.1 Assessment and Plan 60 y/o female with history of HTN, DM, HLD, Hypothyroid, gerd and neuropathy presented to the ED with complaints of severe abdominal pain for 1 week, CT suspicious for diverticulitis. 1. Diverticulitis -Abdominal/pelvis CT shows abnormal sigmoid colon with wall thickening and pericolonic inflammatory change most likely representing a colitis or possibly diverticulitis. No abscess, significant free fluid, or free air is present. -Per review of EMR patient has received cipro, zosyn, and flagyl. Currently just on Ertapenem 05/23 -Currently patient is on clear liquid diet and advance as tolerated. - due to significant worse in leukocytosis and patients worsening sx, will consult GI 2. Pancreatitis -Mild elevation of lipase, improving. -Continue with supportive care as above. 3. Leukocytosis - WBCs 13.3, neutrophils 77% on admission, was down trending, now elevated today 21.7 4. Black stools? -She had no bowel movement while hospitalized, Hemoccult stool still pending. -Hemoglobin then remained stable. -On IV Protonix. -If hemoglobin remains stable patient can be scoped as outpatient. 5. CARLOS - Cr on admission 1.05, now 1.52 - avoid nephrotoxic agents - continue IV hydration - continue to monitor closely DVT prophylaxis -Due to questionable black stools will hold Lovenox and start SCDs. Fluids: NS @ 100 cc/hr Electrolytes: currently wnl Nutrition: NPO Discharge Planning DC pending clinical improvement. GI consult is now pending. Problem Qualifiers (1) Diverticulitis: Qualified Code: K57.32 - Diverticulitis of large intestine without perforation or abscess without bleeding (2) Pancreatitis: Violette Joaquin MD R3 May 24, 2016 13:17
--- NOTE | 2016-05-24 15:59 | PD.CONS ---
HPI History of Present Illness This is a 60 year old female who came to the ER for evaluation of abdominal pain. She reports that she was hospitalized from May 09- at [facility] for abdominal pain and bloody diarrhea. She states that she started having diarrhea a week prior to this hospitalization and that it consisted of a mixture of black tarry stool and bright red blood. She did not have abdominal pain initially. She then developed abdominal pain and went to [facility]. She states that while she was there she had no imaging done, but was told that she had diverticulitis. She specifically states that she did not have a CT scan. She was evaluated with an EGD by Dr. Fajardo and she reports that she was told that she had an ulcer. She states she was discharged home on 05/15 without any medications- she denies being given any prescriptions specifically for ulcer or diverticulitis. She states when she was discharged home, she was feeling better intermittently, but that she continued to have intermittent pain and bleeding. Her symptoms worsened on and became more severe. She has severe diffuse abdominal pain that is worse in the LLQ. This is now constant and she reports that it has not improved since being admitted. She has nausea without vomiting. She has mild bloating. She reports that she has not had any diarrhea or bleeding since she was admitted. She has a rash that developed after receiving a dose of Cipro. She was started on Solumedrol. She reports that she has had 2 prior episodes of diverticulitis , the last time in 2014. She reports that she was very sick "on the verge of " and was told that she needed part of her colon removed, but that she did not have insurance and therefore she did not follow up. She reports that her colonoscopy was about a year ago with Dr. Fajardo and that she had "11 precancerous polyps removed." (Maria Isabel Wisdom) PFSH Past Medical History HTN NV x2 CHF DM GERD Hypothyroidism Neuropathy COPD Hep B, denies chronic hepatitis b Diverticulitis Colon polyps PUD Past Surgical History Hysterectomy Carpel tunnel Cervical Fusion Wired Jaw Colonoscopy EGD (Maria Isabel Wisdom) Coded Allergies: Sulfamethoxazole (Verified Allergy, Severe, Rash, 05/22/16) Trimethoprim (Verified Allergy, Severe, 05/22/16) Ciprofloxacin (Verified Allergy, Intermediate, Flushing, red raised rash, 05/23/16) Nalbuphine (Verified Allergy, Unknown, 05/22/16) Medications Allergies Coded Allergies Type Severity Reaction Last Updated Verified Sulfamethoxazole Allergy Severe Rash 05/22/16 Yes Trimethoprim Allergy Severe 05/22/16 Yes Ciprofloxacin Allergy Intermediate Flushing, red raised rash 05/23/16 Yes Nalbuphine Allergy Unknown 05/22/16 Yes Active Scripts Medications Dose Route/Sig Days Date Category Dose Instructions Gabapentin 300 Mg Cap 300 Mg PO HS 05/23/16 Reported Buspirone (Buspirone HCl) 10 Mg Tab 25 Mg PO TID 05/23/16 Reported Buspirone (Buspirone HCl) 5 Mg Tab 5 Mg PO BID 05/23/16 Reported Synthroid (Levothyroxine Sodium) 25 Mcg Tab 25 Mcg PO DAILY 05/23/16 Reported Omeprazole 20 Mg Tab 20 Mg PO DAILY 05/23/16 Reported Glipizide 5 Mg Tab 2.5 Mg PO BIDAC 05/23/16 Reported Take 30 minutes before a meal Lipitor (Atorvastatin Calcium) 20 Mg Tab 20 Mg PO HS 05/23/16 Reported Folic Acid 5 Mg Cap 5 Mg PO DAILY 05/23/16 Reported Metoprolol Tartrate 50 Mg Tab 50 Mg PO BID 05/23/[address] (Duloxetine HCl) 60 Mg Capdr 60 Mg PO DAILY 05/23/16 Reported Gemfibrozil 600 Mg Tab 600 Mg PO BIDAC 05/23/16 Reported Take 30 minutes prior to breakfast and dinner. Family History Mother with a hx of diverticulitis, DM Maternal grandmother with a hx CVA Social History Smokes 1/2 PPD Denies current etoh use, Quit many years ago, prior she was a binge drinker Denies illicit drug use. (Maria Isabel Wisdom) Review of Systems Constitutional: COMPLAINS OF: Fatigue, Fever (low grade fevers), Change in appetite, DENIES: Weight loss Respiratory: DENIES: Cough Cardiovascular: DENIES: Chest pain Gastrointestinal: COMPLAINS OF: Abdominal pain, Black stools, Bloody stools, Diarrhea, Nausea, DENIES: Vomiting Integumentary: DENIES: Abnormal pigmentation Hematologic/lymphatic: DENIES: Bruising Neurologic: DENIES: Headache Psychiatric: DENIES: Confusion (Maria Isabel Wisdom) GI Exam Vitals I&O Vital Signs Date Time Temp Pulse Resp B/P Pulse Ox O2 Delivery O2 Flow Rate FiO2 05/24/16 12:00 96.6 76 20 130/85 99 05/24/16 08:00 97.4 71 20 105/73 93 05/24/16 04:50 18 05/24/16 04:00 97.2 82 19 126/98 92 05/24/16 00:00 96.0 88 18 104/70 94 05/23/16 20:00 96.2 85 19 128/82 92 05/23/16 16:00 99.0 102 16 105/73 93 I/O 05/23/16 05/23/16 05/23/16 05/24/16 05/24/16 05/24/16 07:00 15:00 23:00 07:00 15:00 23:00 Intake Total 240 ml 240 ml Balance 240 ml 240 ml Intake Oral 240 ml 240 ml # Voids 1 3 2 # Bowel Movements 1 Imaging Last Impressions Abdomen/Pelvis CT 05/23/16 0016 Signed Impressions: Service Date/Time: Monday, May 23, 2016 02:05 - CONCLUSION: 1. Abnormal sigmoid colon with wall thickening and pericolonic inflammatory change most likely representing a colitis or possibly diverticulitis. No abscess, significant free fluid, or free air is present. 2. Mild hepatomegaly with heterogeneous liver enhancement. 3. Coronary artery calcification and severe atherosclerotic disease of the aorta. Wilton Bergeron MD Laboratory Test 05/23/16 05/24/16 18:29 06:00 Hemoglobin 10.9 GM/DL 10.9 GM/DL Hematocrit 33.4 % 33.3 % White Blood Count 21.7 TH/MM3 Red Blood Count 3.65 MIL/MM3 Mean Corpuscular Volume 91.1 FL Mean Corpuscular Hemoglobin 29.8 PG Mean Corpuscular Hemoglobin 32.7 % Concent Red Cell Distribution Width 13.8 % Platelet Count 363 TH/MM3 Mean Platelet Volume 7.8 FL Sodium Level 137 MEQ/L Potassium Level 4.2 MEQ/L Chloride Level 106 MEQ/L Carbon Dioxide Level 19.1 MEQ/L Anion Gap 12 MEQ/L Blood Urea Nitrogen 22 MG/DL Creatinine 1.52 MG/DL Estimat Glomerular Filtration 35 ML/MIN Rate Random Glucose 250 MG/DL Calcium Level 8.5 MG/DL Physical Examination HEENT: Normocephalic; atraumatic; no jaundice. CHEST: CTA CARDIAC: RRR. ABDOMEN: Soft, mildly bloated, diffuse tenderness, more so on left side; no hepatosplenomegaly; bowel sounds are present in all four quadrants. EXTREMITIES: No clubbing, cyanosis, or edema. SKIN: erythematous fine spotted rash to trunk, upper legs, [employer]PERATOR: No focal deficits; alert and oriented times three. (Maria Isabel Wisdom) Assessment and Plan Plan ASSESSMENT: - Colitis vs. diverticulitis with abdominal pain and recent bloody diarrhea. Abdomen/Pelvis CT (05/23/16)----> 1. Abnormal sigmoid colon with wall thickening and pericolonic inflammatory change most likely representing a colitis or possibly diverticulitis. No abscess, significant free fluid, or free air is present. 2. Mild hepatomegaly with heterogeneous liver enhancement. 3. Coronary artery calcification and severe atherosclerotic disease of the aorta. She recently had an EGD at [facility]. She reports that her colonoscopy was about a year ago with Dr. Fajardo and that she had "11 precancerous polyps removed." She reports 2 prior episodes of diverticulitis, last in 2014. Invanz. - Recent GI bleeding with a mixture of black tarry stool and bright red blood mixed within stool. She has not had any bowel movements or bleeding since she was admitted to this facility. - Recent bloody diarrhea. No further episodes since she has been admitted to this facility. - Leukocytosis. Worsening. WBC today 21.7 (from 8.3 yesterday). Of note, was started on steroids for allergic reaction/rash. - Allergic reaction, rash. States she developed fine erythematous spotted rash after receiving cipro. On steroids. - Anemia. Stable. 10.9/33.3. - CARLOS. Creat 1.52. - Recent hospitalization for abdominal pain, bloody diarrhea. She reports that she was hospitalized from May 09- at [facility] for abdominal pain and bloody diarrhea. She states that she started having diarrhea a week prior to this hospitalization and that it consisted of a mixture of black tarry stool and bright red blood. She did not have abdominal pain initially. She then developed abdominal pain and went to [facility]. She states that while she was there she had no imaging done, but was told that she had diverticulitis. She specifically states that she did not have a CT scan. She was evaluated with an EGD by Dr. Fajardo and she reports that she was told that she had an ulcer. She states she was discharged home on 05/15 without any medications- she denies being given any prescriptions specifically for ulcer or diverticulitis. Pt poor historian- states no imaging was done but that she was told that she had diverticulitis. She reports she was evaluated with EGD and told she had ulcer. Pt adamantly states she was sent home without any medications for her diverticulitis or ulcer. PLAN: - NPO for now - Cont. PPI - Cont. Invanz - CT abdomen and pelvis with po contrast only- worsening pain/leukocytosis r/o abscess/perforation - Obtain records from recent hospitalization at [facility] - CBC, BMP in am - Supportive care - FUrther recommendations to follow based on results of above - Pt seen and examined by Dr. Morillo and myself and this note is written on his behalf (Maria Isabel Wisdom) Physician Comments Seen and examined with XOCHITL, worsening wbc counts and abdominal pain. Repeat CT ordered. ? surgical consult. Liquid diet with antibiotics. Obtain records from [facility]. Will follow, thank you (Alexey Morillo MD) Maria Isabel Wisdom May 24, 2016 15:59 Alexey Morillo MD May 25, 2016 12:07
[2016-05-24 16:00] VITALS: BP 119/79; PULSE 79; RESP 20; TEMP 96.2; O2SAT 96
[2016-05-24] MEDS ORDERED: DIATRIZOATE MEGLUM/DIATRIZOATE SOD 9 ML CUP PO ONE (17:15)
[2016-05-24 20:00] VITALS: BP 132/85; PULSE 85; RESP 19; TEMP 97.8; O2SAT 93
--- NOTE | 2016-05-24 22:27 | RADRPT ---
EXAM DATE/TIME: 05/24/2016 21:16 [facility] COMPARISON: No previous studies available for comparison. INDICATIONS : Abdominal pain and elevated white count; diverticulitis vs. colitis. ORAL CONTRAST: Prescribed oral contrast ingested. RADIATION DOSE: 23.73 CTDIvol (mGy) MEDICAL HISTORY : Diabetes mellitus type 2. Hypertension. SURGICAL HISTORY : Hysterectomy. ENCOUNTER: Subsequent ACUITY: 3 days PAIN SCALE: 7/10 LOCATION: abdomen TECHNIQUE: Volumetric scanning of the abdomen and pelvis was performed. Using automated exposure control and ad justment of the mA and/or kV according to patient size, radiation dose was kept as low as reasonably achievable to obtain optimal diagnostic quality images. FINDINGS: LOWER LUNGS: The visualized lower lungs are clear. LIVER: Homogeneous density without lesion. There is no dilation of the biliary tree. No calcified gallston es. SPLEEN: Normal size without lesion. PANCREAS: Within normal limits. KIDNEYS: Normal in size and shape. There is no mass, stone, or hydronephrosis. ADRENAL GLANDS: Within normal limits. VASCULAR: There is no aortic aneurysm. BOWEL/MESENTERY: Oral contrast passes through to the distal colon. No dilated loops of small bowel. There is moderat e wall thickening in a segment of mid sigmoid colon measuring approximately 8 cm in length. There ar e several diverticula seen in the sigmoid colon. There is a small collection of fluid adjacent to th e lateral wall of the distal sigmoid which measures 12 mm in size.. ABDOMINAL WALL: Within normal limits. RETROPERITONEUM: There is no lymphadenopathy. BLADDER: No wall thickening or mass. REPRODUCTIVE: Within normal limits. INGUINAL: There is no lymphadenopathy or hernia. MUSCULOSKELETAL: Within normal limits for patient age. CONCLUSION: Abnormally thickened segment of mid sigmoid with concentric thickening of the wall and scattered dive rticula in the sigmoid colon. The findings suggest either diverticulitis or a focal segment of colit is. No drainable fluid collections seen. Usman Mcelroy MD on May 24, 2016 at 21:56 Board Certified Radiologist. This report was verified electronically.
[2016-05-24] MEDS: ERTAPENEM 1,000 MG/NS 100 ML IV SCH ×2 (22:41)
[2016-05-24] MEDS: ATORVASTATIN 20 MG TAB PO SCH (22:42)
[2016-05-24] MEDS: GABAPENTIN 300 MG CAP PO SCH (22:42)
[2016-05-25] VITALS: BP 132/88; PULSE 90; RESP 19; TEMP 98; O2SAT 93
[2016-05-25] MEDS ORDERED: diphenhydrAMINE HCL 50 MG/ML VIAL IV PUSH ONE (03:00)
[2016-05-25] MEDS: SODIUM CHLOR 0.9% 1000 ML INJ 1,000 ML IV SCH ×2 (04:39→16:09)
[2016-05-25] MEDS: LEVOTHYROXINE SODIUM 25 MCG TAB PO SCH (06:10)
[2016-05-25] MEDS: glipiZIDE 5 MG TAB PO SCH ×2 (06:10→16:08)
[2016-05-25] MEDS: GEMFIBROZIL 600 MG TAB PO SCH ×2 (06:10→16:11)
[2016-05-25] MEDS: ACETAMINOPHEN/HYDROcodone 325 MG/5 MG TAB PO PRN ×3 (06:14→19:57)
[2016-05-25 08:00] VITALS: BP 134/91; PULSE 64; RESP 20; TEMP 96.7; O2SAT 96
[2016-05-25 08:29] LABS: AUTOMATED NEUTROPHIL # 14.5 TH/MM3 (1.8-7.7); BASOPHIL % 0.1 % (0.0-2.0); HEMATOCRIT 28.6 % (35.0-46.0); HEMO FLAGS DIFF FINAL; LYMPH % 4.9 % (9.0-44.0); LYMPHOCYTE # 0.8 TH/MM3 (1.0-4.8); MEAN CELL VOLUME 90.5 FL (80.0-100.0); MEAN CORPUSCULAR HEMOGLOBIN 29.6 PG (27.0-34.0); MEAN CORPUSCULAR HGB CONC 32.7 % (32.0-36.0); MONO % 2.8 % (0.0-8.0); NEUT % 92.2 % (16.0-70.0); PLATELET COUNT 330 TH/MM3 (150-450); RED BLOOD COUNT 3.16 MIL/MM3 (4.00-5.30); RED CELL DISTRIBUTION WIDTH 13.3 % (11.6-17.2); WHITE BLOOD COUNT 15.8 TH/MM3 (4.0-11.0)
[2016-05-25 08:52] LABS: BICARBONATE 20.7 MEQ/L (21.0-32.0); POTASSIUM 4.4 MEQ/L (3.5-5.1)
[2016-05-25] MEDS: methylPREDNISolone SOD SUCC 40 MG/1 ML VIAL IV PUSH SCH (09:11)
[2016-05-25] MEDS: METOPROLOL TARTRATE 50 MG TAB PO SCH ×2 (09:11→21:20)
[2016-05-25] MEDS: busPIRone HCL 5 MG TAB PO SCH ×2 (09:11→21:20)
[2016-05-25] MEDS: DULoxetine HCl DR 60 MG CAP PO SCH (09:11)
[2016-05-25] MEDS: SODIUM CHLORIDE 0.9% FLUSH 10 ML FLUSH IV FLUSH SCH ×2 (09:12→21:00)
[2016-05-25] MEDS: FOLIC ACID 1 MG TAB PO SCH (09:12)
[2016-05-25] MEDS: PANTOPRAZOLE SOD 20 MG DELAYED RELEASE TAB PO SCH (09:12)
--- NOTE | 2016-05-25 11:42 | HHI.PR ---
Subjective Remarks Patient seen and examined this am, vitals are stable and patient is afebrile. She feels unchanged from yesterday. Had a liquid BM this am and feels like she needs to have another one. Reports abdominal pain before my exam. Continues to have rash of UE and chest that she reports is very itchy. Objective Vital Signs Date Time Temp Pulse Resp B/P Pulse Ox O2 Delivery O2 Flow Rate FiO2 05/25/16 08:00 96.7 64 20 134/91 96 05/25/16 07:22 16 05/25/16 00:00 98.0 90 19 132/88 93 05/24/16 20:00 97.8 85 19 132/85 93 05/24/16 16:00 96.2 79 20 119/79 96 05/24/16 12:00 96.6 76 20 130/85 99 I/O 05/24/16 05/24/16 05/24/16 05/25/16 05/25/16 05/25/16 07:00 15:00 23:00 07:00 15:00 23:00 Intake Total 240 ml 1154 ml 0 ml Balance 240 ml 1154 ml 0 ml Intake Oral 240 ml 480 ml 0 ml IV Total 674 ml # Voids 2 6 3 2 # Bowel Movements 0 1 Result Diagram: 05/25/16 0645 05/25/16 0645 Imaging Last Impressions Abdomen/Pelvis CT 05/24/16 0000 Signed Impressions: Service Date/Time: Tuesday, May 24, 2016 21:16 - CONCLUSION: Abnormally thickened segment of mid sigmoid with concentric thickening of the wall and scattered diverticula in the sigmoid colon. The findings suggest either diverticulitis or a focal segment of colitis. No drainable fluid collections seen. Usman Mcelroy MD Objective Remarks GENERAL: Uncomfortable-appearing SKIN: Warm and dry. Erythematous diffuse Jenny rash of UE is visible. HEAD: Normocephalic. EYES: No scleral icterus. No injection or drainage. NECK: Supple, trachea midline. No JVD or lymphadenopathy. CARDIOVASCULAR: Regular rate and rhythm without murmurs, gallops, or rubs. RESPIRATORY: Breath sounds equal bilaterally. No accessory muscle use. GASTROINTESTINAL: Abdomen soft, tenderness to palpation of lower abdominal quadrant, left worse than right. There is no rebound or guarding. MUSCULOSKELETAL: No cyanosis, or edema. BACK: Nontender without obvious deformity. A/P Problem List: (1) Diverticulitis ICD Code: K57.92 (2) Leukocytosis ICD Code: D72.829 (3) Pancreatitis ICD Code: K85.90 (4) Black stools ICD Code: K92.1 (5) Allergic reaction caused by a drug ICD Code: T78.40XA Assessment and Plan 60 y/o female with history of HTN, DM, HLD, Hypothyroid, gerd and neuropathy presented to the ED with complaints of severe abdominal pain for 1 week, CT suspicious for diverticulitis. 1. Diverticulitis -Abdominal/pelvis CT shows abnormal sigmoid colon with wall thickening and pericolonic inflammatory change most likely representing a colitis or possibly diverticulitis. No abscess, significant free fluid, or free air is present. Repeat CT with PO contrast obtained 05/24 with similar findings - leukocytosis improved today. - Per review of EMR patient has received cipro, zosyn, and flagyl. Currently just on Ertapenem 05/23 - GI consulted yesterday for worsening abd pain and worsening leukocytosis: cont PPI, NPO, further reccs to follow 2. Pancreatitis -Mild elevation of lipase, improving. -Continue with supportive care as above. 3. Leukocytosis - WBCs 13.3, neutrophils 77% on admission, trended down today. 4. Black stools? -She had no bowel movement while hospitalized, Hemoccult stool still pending. -Hemoglobin then remained stable. -On IV Protonix. -If hemoglobin remains stable patient can be scoped as outpatient. 5. CARLOS - Cr on admission 1.05, initially uptrending, now improving - avoid nephrotoxic agents - continue IV hydration - continue to monitor closely 6. Allergic rxn - likely to zosyn - s/p epi - cont solumedrol bid and benadryl BID DVT prophylaxis -Due to questionable black stools will hold Lovenox and start SCDs. Fluids: NS @ 100 cc/hr Electrolytes: currently wnl Nutrition: NPO Discharge Planning DC pending clinical improvement. GI consult is now pending. Problem Qualifiers (1) Diverticulitis: Qualified Code: K57.32 - Diverticulitis of large intestine without perforation or abscess without bleeding (2) Pancreatitis: Violette Joaquin MD R3 May 25, 2016 11:42
[2016-05-25 12:00] VITALS: BP 141/90; PULSE 64; RESP 16; TEMP 97.8; O2SAT 95
[2016-05-25] MEDS: diphenhydrAMINE HCL 50 MG/ML VIAL IV PUSH SCH ×2 (12:03→21:20)
--- NOTE | 2016-05-25 15:06 | HHI.GIFU ---
Subjective Remarks 60 yo female sitting up in chair in no apparent distress. Inquiring about when she can eat. (Lilli Blank) Objective Vitals I&O Vital Signs Date Time Temp Pulse Resp B/P Pulse Ox O2 Delivery O2 Flow Rate FiO2 05/25/16 12:00 97.8 64 16 141/90 95 05/25/16 08:00 96.7 64 20 134/91 96 05/25/16 07:22 16 05/25/16 00:00 98.0 90 19 132/88 93 05/24/16 20:00 97.8 85 19 132/85 93 05/24/16 16:00 96.2 79 20 119/79 96 I/O 05/24/16 05/24/16 05/24/16 05/25/16 05/25/16 05/25/16 07:00 15:00 23:00 07:00 15:00 23:00 Intake Total 240 ml 1154 ml 0 ml Balance 240 ml 1154 ml 0 ml Intake Oral 240 ml 480 ml 0 ml IV Total 674 ml # Voids 2 6 3 2 # Bowel Movements 0 1 Laboratory Laboratory Tests Test 05/25/16 06:45 White Blood Count 15.8 Red Blood Count 3.16 Hemoglobin 9.4 Hematocrit 28.6 Mean Corpuscular Volume 90.5 Mean Corpuscular Hemoglobin 29.6 Mean Corpuscular Hemoglobin 32.7 Concent Red Cell Distribution Width 13.3 Platelet Count 330 Mean Platelet Volume 8.1 Neutrophils (%) (Auto) 92.2 Lymphocytes (%) (Auto) 4.9 Monocytes (%) (Auto) 2.8 Eosinophils (%) (Auto) 0.0 Basophils (%) (Auto) 0.1 Neutrophils # (Auto) 14.5 Lymphocytes # (Auto) 0.8 Monocytes # (Auto) 0.4 Eosinophils # (Auto) 0.0 Basophils # (Auto) 0.0 CBC Comment DIFF FINAL Differential Comment Sodium Level 138 Potassium Level 4.4 Chloride Level 107 Carbon Dioxide Level 20.7 Anion Gap 10 Blood Urea Nitrogen 24 Creatinine 1.01 Estimat Glomerular Filtration 56 Rate Random Glucose 226 Calcium Level 8.4 Date/Time Procedure Status Source Growth 05/25/16 06:10 Stool Occult Blood (SIDNEY) - Final Complete Stool Stool HEMOCCULT NEGATIVE Imaging Last Impressions Abdomen/Pelvis CT 05/24/16 0000 Signed Impressions: Service Date/Time: Tuesday, May 24, 2016 21:16 - CONCLUSION: Abnormally thickened segment of mid sigmoid with concentric thickening of the wall and scattered diverticula in the sigmoid colon. The findings suggest either diverticulitis or a focal segment of colitis. No drainable fluid collections seen. Usman Mcelroy MD Physical Exam HEENT: PERR;A; normocephalic; atraumatic; no jaundice. NECK: Neck is supple, no JVD, no lymphadenopathy. CHEST: CTA CARDIAC: RRR with no murmur gallop or rubs. ABDOMEN: Soft, obese, tenderness in LLQ; no hepatosplenomegaly; bowel sounds x 4. EXTREMITIES: No clubbing, cyanosis, or edema. SKIN: Normal; no rash; no jaundice. HUMAN RESOURCES DEPARTMENT SUPERVISOR: No focal deficits; A&O x3. (Lilli Blank) Assessment and Plan Plan ASSESSMENT: - Colitis vs. diverticulitis with abdominal pain and recent bloody diarrhea. Continues to have diarrhea, but denies any blood in stool today. Abdomen/Pelvis CT 05/23/16 1. Abnormal sigmoid colon with wall thickening and pericolonic inflammatory change most likely representing a colitis or possibly diverticulitis. No abscess, significant free fluid, or free air is present. 2. Mild hepatomegaly with heterogeneous liver enhancement. 3. Coronary artery calcification and severe atherosclerotic disease of the aorta. Abdomen/Pelvis CT 05/24/16 Abnormally thickened segment of mid sigmoid with concentric thickening of the wall and scattered diverticula in the sigmoid colon. The findings suggest either diverticulitis or a focal segment of colitis. No drainable fluid collections seen. She recently had an EGD at [facility]. She reports that her colonoscopy was about a year ago with Dr. Fajardo and that she had "11 precancerous polyps removed." She reports 2 prior episodes of diverticulitis, last in 2014. Invanz. - Recent GI bleeding with a mixture of black tarry stool and bright red blood mixed within stool. Denies blood in stool today. - Recent bloody diarrhea. No further episodes since she has been admitted to this facility. - Leukocytosis. Worsening. WBC today improving 15.8 (from 21.7 yesterday). Of note, was started on steroids for allergic reaction/rash. - Allergic reaction, rash. States she developed fine erythematous spotted rash after receiving cipro. On steroids. - Anemia. 9.4/28.6 - CARLOS. Creat 1.01. - Recent hospitalization for abdominal pain, bloody diarrhea. She reports that she was hospitalized from May 09- at [facility] for abdominal pain and bloody diarrhea. She states that she started having diarrhea a week prior to this hospitalization and that it consisted of a mixture of black tarry stool and bright red blood. She did not have abdominal pain initially. She then developed abdominal pain and went to [facility]. She states that while she was there she had no imaging done, but was told that she had diverticulitis. She specifically states that she did not have a CT scan. She was evaluated with an EGD by Dr. Fajardo and she reports that she was told that she had an ulcer. She states she was discharged home on 05/15 without any medications- she denies being given any prescriptions specifically for ulcer or diverticulitis. Pt poor historian- states no imaging was done but that she was told that she had diverticulitis. She reports she was evaluated with EGD and told she had ulcer. Pt adamantly states she was sent home without any medications for her diverticulitis or ulcer. PLAN: - Clear liquid diet - Cont. PPI - Cont. Invanz - CBC, BMP in am - Supportive care - Further recommendations to follow based on results of above Patient seen and examined by Dr. Morillo and myself and this note is written on his behalf (Lilli Blank) Physician Comments Seen and examined with XOCHITL< doing better today. CT shows no evidence of Abscess or perforation. Wbc counts improving. Clear liquid diet. (Alexey Morillo MD) Lilli Blank May 25, 2016 15:05 Alexey Morillo MD May 25, 2016 15:35
[2016-05-25 16:00] VITALS: BP 160/97; PULSE 57; RESP 16; TEMP 96.3; O2SAT 96
[2016-05-25 20:00] VITALS: BP 180/109; PULSE 58; RESP 18; TEMP 96.4; O2SAT 95
[2016-05-25] MEDS: GABAPENTIN 300 MG CAP PO SCH (21:20)
[2016-05-25] MEDS: ATORVASTATIN 20 MG TAB PO SCH (21:20)
[2016-05-25] MEDS: ERTAPENEM 1,000 MG/NS 100 ML IV SCH ×2 (21:21)
[2016-05-26] VITALS (7 sets, daily range): BP systolic 113–151; BP diastolic 63–95; PULSE 56–89; RESP 18–20; TEMP 96.1–97.8; O2SAT 92–99
[2016-05-26] MEDS: ACETAMINOPHEN/HYDROcodone 325 MG/5 MG TAB PO PRN ×5 (01:54→21:18)
[2016-05-26] MEDS: SODIUM CHLOR 0.9% 1000 ML INJ 1,000 ML IV SCH ×3 (01:54→23:34)
[2016-05-26] MEDS: LEVOTHYROXINE SODIUM 25 MCG TAB PO SCH (05:04)
[2016-05-26] MEDS: glipiZIDE 5 MG TAB PO SCH ×2 (05:04→15:24)
[2016-05-26] MEDS: GEMFIBROZIL 600 MG TAB PO SCH ×2 (05:04→15:24)
[2016-05-26] MEDS: DULoxetine HCl DR 60 MG CAP PO SCH (07:50)
[2016-05-26] MEDS: diphenhydrAMINE HCL 50 MG/ML VIAL IV PUSH SCH (07:50)
[2016-05-26] MEDS: METOPROLOL TARTRATE 50 MG TAB PO SCH ×2 (07:51→21:16)
[2016-05-26] MEDS: busPIRone HCL 5 MG TAB PO SCH ×2 (07:51→21:16)
[2016-05-26] MEDS: PANTOPRAZOLE SOD 20 MG DELAYED RELEASE TAB PO SCH (07:51)
[2016-05-26] MEDS: FOLIC ACID 1 MG TAB PO SCH (07:51)
[2016-05-26] MEDS: SODIUM CHLORIDE 0.9% FLUSH 10 ML FLUSH IV FLUSH SCH ×2 (09:00→21:00)
[2016-05-26 10:07] LABS: AUTOMATED NEUTROPHIL # 15.4 TH/MM3 (1.8-7.7); BASOPHIL # 0.1 TH/MM3 (0-0.2); BASOPHIL % 0.3 % (0.0-2.0); EOSINOPHIL % 0.1 % (0.0-4.0); HEMATOCRIT 32.9 % (35.0-46.0); HEMO FLAGS DIFF FINAL; LYMPH % 7.6 % (9.0-44.0); LYMPHOCYTE # 1.4 TH/MM3 (1.0-4.8); MEAN CELL VOLUME 91.3 FL (80.0-100.0); MEAN CORPUSCULAR HEMOGLOBIN 29.5 PG (27.0-34.0); MEAN CORPUSCULAR HGB CONC 32.3 % (32.0-36.0); MONO % 5.3 % (0.0-8.0); NEUT % 86.7 % (16.0-70.0); PLATELET COUNT 420 TH/MM3 (150-450); RED BLOOD COUNT 3.61 MIL/MM3 (4.00-5.30); WHITE BLOOD COUNT 17.8 TH/MM3 (4.0-11.0)
[2016-05-26 10:29] LABS: BICARBONATE 19.8 MEQ/L (21.0-32.0); POTASSIUM 4.2 MEQ/L (3.5-5.1)
--- NOTE | 2016-05-26 11:26 | EKG ---
Date Performed: 05/26/2016 Time Performed: 10:11:30 PTAGE: 60 years EKG: SINUS BRADYCARDIA LOW QRS VOLTAGE IN PRECORDIAL LEADS BORDERLINE ECG NO PREVIOUS TRACING DOCTOR: Neil Haas Interpretating Date/Time 05/26/2016 11:23:21
--- NOTE | 2016-05-26 13:46 | HHI.GIFU ---
Subjective Remarks Resting in bed. Feeling better. No n/v. Tolerating clears. Still having some abdominal discomfort, but much improved. (Maria Isabel Wisdom) Objective Vitals I&O Vital Signs Date Time Temp Pulse Resp B/P Pulse Ox O2 Delivery O2 Flow Rate FiO2 05/26/16 08:32 97.3 58 18 113/74 94 05/26/16 04:00 96.3 56 19 151/94 96 05/26/16 03:37 16 05/26/16 00:00 97.6 63 19 129/89 94 05/25/16 20:00 96.4 58 18 180/109 95 05/25/16 16:00 96.3 57 16 160/97 96 I/O 05/25/16 05/25/16 05/25/16 05/26/16 05/26/16 05/26/16 07:00 15:00 23:00 07:00 15:00 23:00 Intake Total 0 ml 919 ml 480 ml Balance 0 ml 919 ml 480 ml Intake Oral 0 ml 240 ml 480 ml IV Total 679 ml # Voids 2 4 4 3 # Bowel Movements 1 1 1 Laboratory Laboratory Tests Test 05/26/16 05/26/16 09:29 12:35 White Blood Count 17.8 Red Blood Count 3.61 Hemoglobin 10.6 Hematocrit 32.9 Mean Corpuscular Volume 91.3 Mean Corpuscular Hemoglobin 29.5 Mean Corpuscular Hemoglobin 32.3 Concent Red Cell Distribution Width 14.0 Platelet Count 420 Mean Platelet Volume 7.7 Neutrophils (%) (Auto) 86.7 Lymphocytes (%) (Auto) 7.6 Monocytes (%) (Auto) 5.3 Eosinophils (%) (Auto) 0.1 Basophils (%) (Auto) 0.3 Neutrophils # (Auto) 15.4 Lymphocytes # (Auto) 1.4 Monocytes # (Auto) 0.9 Eosinophils # (Auto) 0.0 Basophils # (Auto) 0.1 CBC Comment DIFF FINAL Differential Comment Sodium Level 141 Potassium Level 4.2 Chloride Level 111 Carbon Dioxide Level 19.8 Anion Gap 10 Blood Urea Nitrogen 23 Creatinine 1.10 Estimat Glomerular Filtration 51 Rate Random Glucose 76 Calcium Level 8.5 Troponin I LESS THAN 0.02 Date/Time Procedure Status Source Growth 05/25/16 06:10 Stool Occult Blood (SIDNEY) - Final Complete Stool Stool HEMOCCULT NEGATIVE Imaging Last Impressions Abdomen/Pelvis CT 05/24/16 0000 Signed Impressions: Service Date/Time: Tuesday, May 24, 2016 21:16 - CONCLUSION: Abnormally thickened segment of mid sigmoid with concentric thickening of the wall and scattered diverticula in the sigmoid colon. The findings suggest either diverticulitis or a focal segment of colitis. No drainable fluid collections seen. Usman Mcelroy MD Physical Exam HEENT: PERR;A; normocephalic; atraumatic CHEST: CTA CARDIAC: RRR with no murmur gallop or rubs. ABDOMEN: Soft, obese, mild tenderness in LLQ; no hepatosplenomegaly; bowel sounds x 4. EXTREMITIES: No clubbing, cyanosis, or edema SKIN: Fine red rash improving. PROFESSOR OF LAW: No focal deficits; A&O x3. (Maria Isabel Wisdom) Assessment and Plan Plan ASSESSMENT: - Colitis vs. diverticulitis with abdominal pain and recent bloody diarrhea. Abdomen/Pelvis CT 05/23/16 1. Abnormal sigmoid colon with wall thickening and pericolonic inflammatory change most likely representing a colitis or possibly diverticulitis. No abscess, significant free fluid, or free air is present. 2. Mild hepatomegaly with heterogeneous liver enhancement. 3. Coronary artery calcification and severe atherosclerotic disease of the aorta. Pt was having significant tenderness and increase in WBC on 05/24/16 and therefore had repeat CT Abdomen/Pelvis (05/24/16)----> Abnormally thickened segment of mid sigmoid with concentric thickening of the wall and scattered diverticula in the sigmoid colon. The findings suggest either diverticulitis or a focal segment of colitis. No drainable fluid collections seen. She recently had an EGD at [facility]. Invanz. Clinically, much improved. Only mild LLQ tenderness. Afebrile. Tolerating clear liquids. - Recent GI bleeding with a mixture of black tarry stool and bright red blood mixed within stool. Denies blood in stool today. Had recent EGD at [facility]. She reports that her colonoscopy was about a year ago with Dr. Fajardo and that she had "11 precancerous polyps removed." She reports 2 prior episodes of diverticulitis, last in 2014. Records requested. - Recent bloody diarrhea. No further episodes since she has been admitted to this facility. - Leukocytosis. Worsening. WBC today improving 15.8 (from 21.7 yesterday). Of note, was started on steroids for allergic reaction/rash. - Allergic reaction, rash. States she developed fine erythematous spotted rash after receiving cipro. On steroids. - Anemia. 10.6/32.9. - CARLOS. Improved. - Recent hospitalization for abdominal pain, bloody diarrhea. She reports that she was hospitalized from May 09- at [facility] for abdominal pain and bloody diarrhea. She states that she started having diarrhea a week prior to this hospitalization and that it consisted of a mixture of black tarry stool and bright red blood. She did not have abdominal pain initially. She then developed abdominal pain and went to [facility]. She states that while she was there she had no imaging done, but was told that she had diverticulitis. She specifically states that she did not have a CT scan. She was evaluated with an EGD by Dr. Fajrado and she reports that she was told that she had an ulcer. She states she was discharged home on 05/15 without any medications- she denies being given any prescriptions specifically for ulcer or diverticulitis. Pt poor historian- states no imaging was done but that she was told that she had diverticulitis. She reports she was evaluated with EGD and told she had ulcer. Pt adamantly states she was sent home without any medications for her diverticulitis or ulcer. PLAN: - Full liquids - Cont. PPI - Cont. Invanz - CBC in am - Await records from [facility] - Supportive care - Further recommendations to follow based on results of above - Patient seen and examined by Dr. Morillo and myself and this note is written on his behalf (Maria Isabel Wisdom) Physician Comments Seen and examined with XOCHITL, feeling better.Advance diet slowly. continue antibiotics. (Alexey Morillo MD) Maria Isabel Wisdom May 26, 2016 13:46 Alexey Morillo MD May 26, 2016 17:39
--- NOTE | 2016-05-26 15:54 | HHI.PR ---
Subjective Remarks f/u for abdominal pain. patient stated pain is improving but continues to have pain. denied any diarrhea or bloody BM. patient stated earlier she had chest pressure after eating that lasted a few hours and resolved on its own, pain was nonradiating. Denied any N/V. laying down worsened the pain. EKG and troponin obtained at the at time. No other complaints. Objective Vitals Vital Signs Date Time Temp Pulse Resp B/P Pulse Ox O2 Delivery O2 Flow Rate FiO2 05/26/16 12:00 96.1 57 20 138/76 93 05/26/16 08:32 97.3 58 18 113/74 94 05/26/16 04:00 96.3 56 19 151/94 96 05/26/16 03:37 16 05/26/16 00:00 97.6 63 19 129/89 94 05/25/16 20:00 96.4 58 18 180/109 95 05/25/16 16:00 96.3 57 16 160/97 96 I/O 05/25/16 05/25/16 05/25/16 05/26/16 05/26/16 05/26/16 07:00 15:00 23:00 07:00 15:00 23:00 Intake Total 0 ml 919 ml 480 ml Balance 0 ml 919 ml 480 ml Intake Oral 0 ml 240 ml 480 ml IV Total 679 ml # Voids 2 4 4 3 # Bowel Movements 1 1 1 Result Diagram: 05/26/1692805/26/16928 Objective Remarks GENERAL: in NAD CARDIOVASCULAR: Regular rate and rhythm without murmurs, gallops, or rubs. RESPIRATORY: Breath sounds equal bilaterally. No accessory muscle use. GASTROINTESTINAL: Abdomen soft, positive for left lower quadrant tenderness in the abdomen, nondistended. MUSCULOSKELETAL: No cyanosis, or edema. BACK: Nontender without obvious deformity. No CVA tenderness. Medications and IVs Current Medications Ondansetron HCl 4 mg 4 mg ONCE ONCE IVP Last administered on 05/23/16 00:30; Start 05/23/16 at 00:30; Stop 05/23/16 at 00:31; Status DC Sodium Chloride (NS 1000 ml Inj) 1,000 ml @ 1,000 mls/hr Q1H IV Last administered on 05/23/16 00:29; Start 05/23/16 at 00:16; Stop 05/23/16 at 01:15 ; Status DC Sodium Chloride (NS Flush) 2 ml UNSCH PRN IV FLUSH FLUSH AFTER USING IV ACCESS ; Start 05/23/16 at 00:30; Stop 05/23/16 at 02:47; Status DC Hydromorphone HCl (Dilaudid Pf Inj) 1 mg ONCE ONCE IVS Last administered on 00:30; Start 05/23/16 at 00:30; Stop 05/23/16 at 00:31; Status DC Iohexol 88 ml 88 ml STK-MED ONCE IV Last administered on 05/23/16 02:14; Start 05/23/16 at 02:14; Stop 05/23/16 at 02:15; Status DC Piperacillin Sod/ Tazobactam Sod 50 ml @ 100 mls/hr ONCE ONCE IV Last administered on 05/23/16 03:11; Start 05/23/16 at 02:45; Stop 05/23/16 at 03:14 ; Status DC Sodium Chloride (NS 1000 ml Inj) 1,000 ml @ 100 mls/hr Q10H IV Last administered on 05/26/16 10:39; Start 05/23/16 at 02:39 Sodium Chloride (NS Flush) 2 ml UNSCH PRN IV FLUSH FLUSH AFTER USING IV ACCESS ; Start 05/23/16 at 02:45 Sodium Chloride (NS Flush) 2 ml BID IV FLUSH Last administered on 05/25/16 09: 12; Start 05/23/16 at 09:00 Ondansetron HCl (Zofran Inj) 4 mg Q6H PRN IVP NAUSEA OR VOMITING Last administered on 05/26/16 07:55; Start 05/23/16 at 02:45 Enoxaparin Sodium (Lovenox Inj) 40 mg Q24H SQ Last administered on 05/23/16 08 :08; Start 05/23/16 at 09:00; Stop 05/23/16 at 11:48; Status DC Naloxone HCl 0.4 mg 0.4 mg UNSCH PRN IV SEE LABEL COMMENTS; Start 05/23/16 at 02:45 Piperacillin Sod/ Tazobactam Sod (Zosyn 4.5 Gm Premix) 100 ml @ 200 mls/hr Q6H IV Last administered on 05/23/16 15:38; Start 05/23/16 at 09:00; Stop at 17:14; Status DC Hydromorphone HCl (Dilaudid Pf Inj) 0.2 mg Q4H PRN IV PUSH PAIN >5 Last administered on 05/23/16 04:25; Start 05/23/16 at 02:45; Stop 05/23/16 at 05:04 ; Status DC Pantoprazole Sodium (Protonix Inj) 40 mg Q12H IV PUSH Last administered on 05/23 15:43; Start 05/23/16 at 05:00; Stop 05/23/16 at 21:23; Status DC Hydromorphone HCl (Dilaudid Pf Inj) 1 mg Q4H PRN IV PUSH PAIN >5 Last administered on 05/23/16 11:23; Start 05/23/16 at 06:45; Stop 05/23/16 at 17:14 ; Status DC Hydromorphone HCl (Dilaudid Pf Inj) 1 mg ONCE ONCE IV PUSH Last administered on 05/23/16 05:55; Start 05/23/16 at 05:15; Stop 05/23/16 at 05:16; Status DC Atorvastatin Calcium (Lipitor) 20 mg HS PO Last administered on 05/25/16 21:20 ; Start 05/23/16 at 21:00 Buspirone HCl (Buspar) 5 mg BID PO Last administered on 05/26/16 07:51; Start 05/23/16 at 09:00 Duloxetine HCl (Cymbalta Dr) 60 mg DAILY PO Last administered on 05/26/16 07:50 ; Start 05/23/16 at 09:00 Folic Acid (Folate) 5 mg DAILY PO ; Start 05/23/16 at 09:00; Stop 05/23/16 at 15 :06; Status DC Gabapentin (Neurontin) 300 mg HS PO Last administered on 05/25/16 21:20; Start 05/23/16 at 21:00 Gemfibrozil (Lopid) 600 mg BIDAC PO Last administered on 05/26/16 15:24; Start 05/23/16 at 16:00 Glipizide (Glucotrol) 2.5 mg BIDAC PO Last administered on 05/26/16 15:24; Start 05/23/16 at 16:00 Levothyroxine Sodium (Synthroid) 25 mcg DAILY@06 PO Last administered on 05:04; Start 05/23/16 at 09:00 Metoprolol Tartrate (Lopressor) 50 mg BID PO Last administered on 05/26/16 07: 51; Start 05/23/16 at 09:00 Pantoprazole Sodium (Protonix) 20 mg DAILY PO Last administered on 05/24/16 10: 03; Start 05/23/16 at 09:00; Stop 05/24/16 at 16:27; Status DC Diphenhydramine HCl (Benadryl Inj) 25 mg BID IV PUSH Last administered on 07:50; Start 05/23/16 at 13:30 Methylprednisolone Sodium Succinate (SoluMEDROL INJ) 40 mg DAILY IV PUSH Last administered on 05/23/16 13:42; Start 05/23/16 at 13:30; Stop 05/23/16 at 17:26 ; Status DC Folic Acid 1 mg 1 mg DAILY PO Last administered on 05/26/16 07:51; Start at 16:00 Ciprofloxacin/ Dextrose 200 ml @ 200 mls/hr Q12H IV ; Start 05/23/16 at 18:00; Stop 05/23/16 at 19:09; Status DC Metronidazole (Flagyl 500 Mg Inj) 100 ml @ 100 mls/hr Q8H IV ; Start 05/23/16 at 20:00; Stop 05/23/16 at 20:00; Status DC Acetaminophen/ Hydrocodone Bitart ([place] 5-325 Mg) 1 tab Q4H PRN PO pain 1-5 Last administered on 05/25/16 06:14; Start 05/23/16 at 17:30 Acetaminophen/ Hydrocodone Bitart ([place] 5-325 Mg) 2 tab Q4H PRN PO pain 6-10 Last administered on 05/26/16 15:24; Start 05/23/16 at 17:30 Methylprednisolone Sodium Succinate (SoluMEDROL INJ) 40 mg BID IV PUSH Last administered on 05/25/16 09:11; Start 05/23/16 at 21:00; Status Hold Epinephrine HCl (Adrenalin (1:1000) Inj) 0.3 mg ONCE ONCE IM Last administered on 05/23/16 18:13; Start 05/23/16 at 17:30; Stop 05/23/16 at 17:31 ; Status DC Ertapenem 1000 mg 1,000 mg DAILY IM ; Start 05/23/16 at 19:15; Stop 05/23/16 at 19:51; Status DC Ertapenem/Sodium Chloride (INVanz INJ/NS Inj) 100 ml @ 200 mls/hr Q24H IV Last administered on 05/25/16 21:21; Start 05/23/16 at 21:00 Pantoprazole Sodium (Protonix) 40 mg DAILY PO Last administered on 05/26/16 07: 51; Start 05/25/16 at 09:00 Diatrizoate Meglum/ Diatrizoate Sod ( Gastroview Liq) 18 ml ONCE ONCE PO Last administered on 05/24/16 18:17; Start 05/24/16 at 17:15; Stop 05/24/16 at 17: 16; Status DC Diphenhydramine HCl (Benadryl Inj) 25 mg ONCE ONCE IV PUSH ; Start 05/25/16 at 03:00; Stop 05/25/16 at 03:01; Status DC A/P Problem List: (1) Diverticulitis ICD Code: K57.92 Status: Acute (2) Leukocytosis ICD Code: D72.829 Status: Acute (3) Pancreatitis ICD Code: K85.90 Status: Acute (4) Black stools ICD Code: K92.1 Status: Acute Assessment and Plan 60 y/o female with history of HTN, DM, HLD, Hypothyroid, gerd and neuropathy presented to the ED with complaints of severe abdominal pain for 1 week, CT suspicious for diverticulitis. Diverticulitis -Abdominal/pelvis CT shows abnormal sigmoid colon with wall thickening and pericolonic inflammatory change most likely representing a colitis or possibly diverticulitis. No abscess, significant free fluid, or free air is present. Repeat CT with PO contrast obtained 05/24 with similar findings - leukocytosis improved but most likely it was elevated due to steroid use. - Patient has received cipro, zosyn, and flagyl, but had allergic reaction to Cipro and Zosyn. Currently on Ertapenem 05/23 - GI is ff pending records from [facility]. Leukocytosis -most likely elevated due to solumedrol use during allergic reaction to antibiotics. -trending down. -continue to monitor. Pancreatitis -Mild elevation of lipase, improving. -Continue with supportive care as above. Questionable Black stools -Hemoccult stool negative. -Hemoglobin remained stable. -On IV Protonix. -patient can be scoped as outpatient if needed. -GI ff. CARLOS - Cr on admission 1.05, initially up trending, now improving - avoid nephrotoxic agents - continue IV hydration - continue to monitor closely Allergic rxn - likely to zosyn - s/p epi - cont solumedrol bid and benadryl BID DVT prophylaxis -Due to questionable black stools will hold Lovenox. -has SCDs. Discharge Planning continue to be symptomatic, but improving. continue wit IV antibiotics per GI. Problem Qualifiers (1) Diverticulitis: Qualified Code: K57.32 - Diverticulitis of large intestine without perforation or abscess without bleeding (2) Pancreatitis: Dinora Vasquez MD May 26, 2016 15:54 Dinora Vasquez MD May 26, 2016 15:54
--- NOTE | 2016-05-26 17:35 | PD.ID.CON ---
History of Present Illness Service ID Consult Requested By Reason for Consult Evaluation and Mment of Persistent Leucocytosis, Diverticulitis in patient with multiple antibiotic allergies. Primary Care Physician Non-Staff Diagnoses: History of Present Illness 60 y/o female with history of HTN, DM, HLD, Hypothyroid, gerd and neuropathy presented to the ED with complaints of severe abdominal pain for 1 week. Patient was admitted at [facility] for 5 days a week ago for diverticulitis and discharged home with no medications. Since discharge she has continued to have constant diarrhea, severe LLQ abdominal pain and vomiting. When she was first admitted to [facility] she had black color and red color stools, and states today that he started to get dark again. She states she had an EGD performed at [facility], but was only told she had an irritated ulcer. She sees Dr. Ford for outpatient GI, and states last colonoscopy was one year ago, with no problems. Patient was treated with IV zosyn and Dilaudid and developed Maculopapular rash both were DCed at same time. Started on IV ertapenem no blood cultures drawn since admission. ID consulted for eval and Mment of Persistent leucocytosis, diverticulitis in patient with multiple antibiotic allergies. Clinically feels better compared to admission slightly now able to eat some but still with significant abdominal pain and discomfort. Review of Systems ROS Limitations: Poor Historian Constitutional: COMPLAINS OF: Fever, DENIES: Diaphoretic episodes, Fatigue, Weight gain, Weight loss, Chills, Dizziness, Change in appetite, Night Sweats Endocrine: DENIES: Abnorml menstrual pattern, Heat/cold intolerance, Polydipsia , Polyuria, Polyphagia Eyes: DENIES: Blurred vision, Diplopia, Eye inflammation, Eye pain, Vision loss , Photosensitivity, Double Vision Ears, nose, mouth, throat: DENIES: Tinnitus, Hearing loss, Vertigo, Nasal discharge, Oral lesions, Throat pain, Hoarseness, Ear Pain, Running Nose, Epistaxis, Sinus Pain, Toothache, Odynophagia Respiratory: DENIES: Apneas, Cough, Snoring, Wheezing, Hemoptysis, Sputum production, Shortness of breath Cardiovascular: DENIES: Chest pain, Palpitations, Syncope, Dyspnea on Exertion , PND, Lower Extremity Edema, Orthopnea, Claudication Gastrointestinal: COMPLAINS OF: Abdominal pain, DENIES: Black stools, Bloody stools, Constipation, Diarrhea, Nausea, Vomiting, Difficulty Swallowing, Anorexia Genitourinary: DENIES: Abnormal vaginal bleeding, Dysmenorrhea, Dyspareunia, Sexual dysfunction, Urinary frequency, Urinary incontinence, Urgency, Hematuria , Dysuria, Nocturia, Vaginal discharge Musculoskeletal: DENIES: Joint pain, Muscle aches, Stiffness, Joint Swelling, Back pain, Neck pain Integumentary: COMPLAINS OF: Pruritus, Rash, DENIES: Abnormal pigmentation, Nail changes, Breast masses, Breast skin changes, Nipple discharge Hematologic/lymphatic: DENIES: Bruising, Lymphadenopathy Immunologic/allergic: DENIES: Eczema, Urticaria Neurologic: DENIES: Abnormal gait, Headache, Localized weakness, Paresthesias, Seizures, Speech Problems, Tremor, Poor Balance Psychiatric: COMPLAINS OF: Anxiety, Depression, DENIES: Confusion, Mood changes, Hallucinations, Agitation, Suicidal Ideation, Homicidal Ideation, Delusions Except as stated in HPI: all other systems reviewed are Neg Past Family Social History Allergies: Coded Allergies: Sulfamethoxazole (Verified Allergy, Severe, Rash, 05/22/16) Trimethoprim (Verified Allergy, Severe, 05/22/16) Zosyn (Verified Allergy, Severe, Rash, 05/26/16) Maculopapular all over the body. Was also on Dilaudid. Both stopped at same time and rash resolved. Ciprofloxacin (Verified Allergy, Intermediate, Flushing, red raised rash, 05/23/16) Nalbuphine (Verified Allergy, Unknown, 05/22/16) Past Medical History HTN AL x2 CHF DM GERD Hypothyroidism Neuropathy COPD Hep B Past Surgical History Hysterectomy Carpel tunnel Cervical Fusion Wired Jaw Reported Medications Reported Meds & Active Scripts Active Reported Gabapentin 300 Mg Cap 300 Mg PO HS Buspirone (Buspirone HCl) 10 Mg Tab 25 Mg PO TID Buspirone (Buspirone HCl) 5 Mg Tab 5 Mg PO BID Synthroid (Levothyroxine Sodium) 25 Mcg Tab 25 Mcg PO DAILY Omeprazole 20 Mg Tab 20 Mg PO DAILY Glipizide 5 Mg Tab 2.5 Mg PO BIDAC Take 30 minutes before a meal Lipitor (Atorvastatin Calcium) 20 Mg Tab 20 Mg PO HS Folic Acid 5 Mg Cap 5 Mg PO DAILY Metoprolol Tartrate 50 Mg Tab 50 Mg PO BID Cymbalta DR (Duloxetine HCl) 60 Mg Capdr 60 Mg PO DAILY Gemfibrozil 600 Mg Tab 600 Mg PO BIDAC Take 30 minutes prior to breakfast and dinner. Active Ordered Medications Current Medications Medications (Trade) Dose Ordered Sig/Alfredo Route Start Time Stop Time Status Last Admin (NS 1000 ml Inj) 1,000 ml @ 100 mls/hr Q10H IV 05/23/16 02:39 05/26/16 10:39 (NS Flush) 2 ml UNSCH PRN IV FLUSH 05/23/16 02:45 (NS Flush) 2 ml BID IV FLUSH 05/23/16 09:00 05/25/16 09:12 (Zofran Inj) 4 mg Q6H PRN IVP 05/23/16 02:45 05/26/16 07:55 (Narcan Inj) 0.4 mg UNSCH PRN IV 05/23/16 02:45 (Lipitor) 20 mg HS PO 05/23/16 21:00 05/25/16 21:20 (Buspar) 5 mg BID PO 05/23/16 09:00 05/26/16 07:51 (Cymbalta Dr) 60 mg DAILY PO 05/23/16 09:00 05/26/16 07:50 (Neurontin) 300 mg HS PO 05/23/16 21:00 05/25/16 21:20 (Lopid) 600 mg BIDAC PO 05/23/16 16:00 05/26/16 15:24 (Glucotrol) 2.5 mg BIDAC PO 05/23/16 16:00 05/26/16 15:24 (Synthroid) 25 mcg DAILY@06 PO 05/23/16 09:00 05/26/16 05:04 (Lopressor) 50 mg BID PO 05/23/16 09:00 05/26/16 07:51 (Folate) 1 mg DAILY PO 05/23/16 16:00 05/26/16 07:51 ([place] 5-325 Mg) 1 tab Q4H PRN PO 05/23/16 17:30 05/25/16 06:14 Acetaminophen/ Hydrocodone Bitart 2 tab 2 tab Q4H PRN PO 05/23/16 17:30 05/26/16 15:24 (INVanz INJ/NS Inj) 100 ml @ 200 mls/hr Q24H IV 05/23/16 21:00 05/25/16 21:21 (Protonix) 40 mg DAILY PO 05/25/16 09:00 05/26/16 07:51 (SoluMEDROL INJ) 40 mg DAILY IV PUSH 05/27/16 09:00 (Diflucan) 100 mg DAILY PO 05/27/16 09:00 (ZyrTEC) 10 mg DAILY PO 05/26/16 18:45 (Benadryl) 25 mg BID PO 05/26/16 21:00 Family History reviewed and NC to current ID problem Mother : diverticulosis. Social History reviewed. Lives at home alone. reports h/o PTSD reason not known. . Was from prior to him passing away. Physical Exam Vital Signs Vital Signs Date Time Temp Pulse Resp B/P Pulse Ox O2 Delivery O2 Flow Rate FiO2 05/26/16 12:00 96.1 57 20 138/76 93 05/26/16 08:32 97.3 58 18 113/74 94 05/26/16 04:00 96.3 56 19 151/94 96 05/26/16 03:37 16 05/26/16 00:00 97.6 63 19 129/89 94 05/25/16 20:00 96.4 58 18 180/109 95 Physical Exam GENERAL: This is a well-nourished, well-developed patient, in no apparent distress. SKIN: maculopapular rash all over the body. HEAD: Atraumatic. Normocephalic. No temporal or scalp tenderness. EYES: Pupils equal round and reactive. Extraocular motions intact. No scleral icterus. No injection or drainage. ENT: Nose without bleeding, purulent drainage or septal hematoma. Throat without erythema, tonsillar hypertrophy or exudate. Uvula midline. Airway patent. NECK: Trachea midline. Supple, nontender, no meningeal signs. CARDIOVASCULAR: RRR RESPIRATORY: Clear to auscultation. Breath sounds equal bilaterally. No wheezes , rales, or rhonchi. GASTROINTESTINAL: Abdomen soft, tenderness in LLQ. MUSCULOSKELETAL: Extremities without clubbing, cyanosis, or edema. NEUROLOGICAL: Awake and alert. Grossly non focal Psych: cooperative. Flat affect, tearful and sad. IV line sites with no e.o infection. Laboratory Laboratory Tests Test 05/26/16 05/26/16 09:29 12:35 White Blood Count 17.8 Red Blood Count 3.61 Hemoglobin 10.6 Hematocrit 32.9 Mean Corpuscular Volume 91.3 Mean Corpuscular Hemoglobin 29.5 Mean Corpuscular Hemoglobin 32.3 Concent Red Cell Distribution Width 14.0 Platelet Count 420 Mean Platelet Volume 7.7 Neutrophils (%) (Auto) 86.7 Lymphocytes (%) (Auto) 7.6 Monocytes (%) (Auto) 5.3 Eosinophils (%) (Auto) 0.1 Basophils (%) (Auto) 0.3 Neutrophils # (Auto) 15.4 Lymphocytes # (Auto) 1.4 Monocytes # (Auto) 0.9 Eosinophils # (Auto) 0.0 Basophils # (Auto) 0.1 CBC Comment DIFF FINAL Differential Comment Sodium Level 141 Potassium Level 4.2 Chloride Level 111 Carbon Dioxide Level 19.8 Anion Gap 10 Blood Urea Nitrogen 23 Creatinine 1.10 Estimat Glomerular Filtration 51 Rate Random Glucose 76 Calcium Level 8.5 Troponin I LESS THAN 0.02 Date/Time Procedure Status Source Growth 05/25/16 06:10 Stool Occult Blood (SIDNEY) - Final Complete Stool Stool HEMOCCULT NEGATIVE Result Diagram: 05/26/16 0929 05/26/16 0929 Imaging Last Impressions Abdomen/Pelvis CT 05/24/16 0000 Signed Impressions: Service Date/Time: Tuesday, May 24, 2016 21:16 - CONCLUSION: Abnormally thickened segment of mid sigmoid with concentric thickening of the wall and scattered diverticula in the sigmoid colon. The findings suggest either diverticulitis or a focal segment of colitis. No drainable fluid collections seen. Usman Mcelroy MD Assessment and Plan Assessment and Plan Acute diverticulitis, micro leak related acute peritonitis. 3rd episode of diverticulitis needing admission. Acute pancreatitis new first known episode. Persistent leucocytosis (SIRS from inflammation vs fungal vs resistant infection vs drug fever). Check Procalcitonin. Depression clinical diagnosis. H/o PTSD. Acute renal failure: ? sepsis, prerenal, meds. Recs: Continue ertapenem IV for now (ASP: maculopapular rash while on Zosyn IV and Dilaudid, both stopped at same time, will consider challenging to cephalosporin) Start Diflucan (GI sepsis in patient with Diverticulitis ? peritonitis) Check procalcitonin Check Blood cultures. Check HIV antibody Check Hepatitis Profile. Psych consult: patient appears depressed, reports PTSD. CT abd pelvis reviewed and compared: no abscess. Gladys Gandara MD May 26, 2016 17:35
[2016-05-26] MEDS: diphenhydrAMINE HCL 25 MG CAP PO SCH (21:16)
[2016-05-26] MEDS: ATORVASTATIN 20 MG TAB PO SCH (21:16)
[2016-05-26] MEDS: CETIRIZINE HCL 10 MG TAB PO SCH (21:16)
[2016-05-26] MEDS: GABAPENTIN 300 MG CAP PO SCH (21:16)
[2016-05-26] MEDS: ERTAPENEM 1,000 MG/NS 100 ML IV SCH ×2 (21:19)
[2016-05-27] VITALS (8 sets, daily range): BP systolic 117–175; BP diastolic 89–113; PULSE 55–75; RESP 16–18; TEMP 96.6–97.8; O2SAT 92–94
[2016-05-27] MEDS: ACETAMINOPHEN/HYDROcodone 325 MG/5 MG TAB PO PRN ×5 (04:11→22:49)
[2016-05-27 05:55] LABS: AUTOMATED NEUTROPHIL # 4.5 TH/MM3 (1.8-7.7); BASOPHIL # 0.1 TH/MM3 (0-0.2); BASOPHIL % 0.9 % (0.0-2.0); EOSINOPHIL # 0.3 TH/MM3 (0-0.4); EOSINOPHIL % 3.1 % (0.0-4.0); HEMATOCRIT 33.9 % (35.0-46.0); HEMO FLAGS DIFF FINAL; LYMPH % 32.5 % (9.0-44.0); LYMPHOCYTE # 2.8 TH/MM3 (1.0-4.8); MEAN CELL VOLUME 92.1 FL (80.0-100.0); MEAN CORPUSCULAR HEMOGLOBIN 30.5 PG (27.0-34.0); MEAN CORPUSCULAR HGB CONC 33.1 % (32.0-36.0); MONO % 11.3 % (0.0-8.0); NEUT % 52.2 % (16.0-70.0); PLATELET COUNT 374 TH/MM3 (150-450); RED BLOOD COUNT 3.68 MIL/MM3 (4.00-5.30); RED CELL DISTRIBUTION WIDTH 13.7 % (11.6-17.2); WHITE BLOOD COUNT 8.5 TH/MM3 (4.0-11.0)
[2016-05-27] MEDS: LEVOTHYROXINE SODIUM 25 MCG TAB PO SCH (05:59)
[2016-05-27] MEDS: GEMFIBROZIL 600 MG TAB PO SCH ×2 (05:59→14:56)
[2016-05-27] MEDS: glipiZIDE 5 MG TAB PO SCH ×2 (05:59→14:56)
[2016-05-27 06:20] LABS: BICARBONATE 19.5 MEQ/L (21.0-32.0); POTASSIUM 4.3 MEQ/L (3.5-5.1)
[2016-05-27] MEDS: SODIUM CHLOR 0.9% 1000 ML INJ 1,000 ML IV SCH ×3 (06:39→19:41)
--- NOTE | 2016-05-27 06:48 | HHI.PR ---
Subjective Remarks Patient still with LL abd pain. She also had diarrhea. C diff is positive will start flagyl No feevrs or chills overnight. No n/v, able to tolerate food. Nausea is controlled with zofran and gagan dianna. Objective Vitals Vital Signs Date Time Temp Pulse Resp B/P Pulse Ox O2 Delivery O2 Flow Rate FiO2 05/27/16 04:00 97.0 72 18 117/91 93 05/27/16 00:00 96.6 72 17 121/89 92 05/26/16 20:04 63 05/26/16 20:00 96.9 57 18 133/95 93 05/26/16 20:00 97.8 89 18 139/63 92 05/26/16 16:00 96.2 58 20 147/80 99 05/26/16 12:00 96.1 57 20 138/76 93 05/26/16 08:32 97.3 58 18 113/74 94 I/O 05/26/16 05/26/16 05/26/16 05/27/16 05/27/16 05/27/16 07:00 15:00 23:00 07:00 15:00 23:00 Intake Total 480 ml 720 ml 2322 ml 1348 ml Output Total 200 ml Balance 480 ml 720 ml 2122 ml 1348 ml Intake Oral 480 ml 720 ml IV Total 2322 ml 1348 ml Output Urine Total 200 ml # Voids 3 3 2 # Bowel Movements 1 1 Result Diagram: 05/27/16 0505 05/27/16 0505 Imaging Last Impressions Abdomen/Pelvis CT 05/24/16 0000 Signed Impressions: Service Date/Time: Tuesday, May 24, 2016 21:16 - CONCLUSION: Abnormally thickened segment of mid sigmoid with concentric thickening of the wall and scattered diverticula in the sigmoid colon. The findings suggest either diverticulitis or a focal segment of colitis. No drainable fluid collections seen. Usman Mcelroy MD Objective Remarks GENERAL: 60 yo F well nourished well developed patient, at the margin of the bed, appears in acute distress. SKIN: Warm and dry. HEAD: Atraumatic. Normocephalic. EYES: Pupils equal and round. No scleral icterus. No injection or drainage. ENT: No nasal bleeding or discharge. Mucous membranes pink and moist. NECK: Trachea midline. No JVD. CARDIOVASCULAR: Regular rate and rhythm. RESPIRATORY: No accessory muscle use. Clear to auscultation. Breath sounds equal bilaterally. GASTROINTESTINAL: Abdomen soft, left lower quadrant tenderness on palpation, nondistended. MUSCULOSKELETAL: Extremities without clubbing, cyanosis, or edema. No obvious deformities. NEUROLOGICAL: Awake and alert. No obvious cranial nerve deficits. Motor grossly within normal limits. Five out of 5 muscle strength in the arms and legs. Normal speech. PSYCHIATRIC: Appropriate mood and affect; insight and judgment normal. A/P Problem List: (1) Diverticulitis ICD Code: K57.92 Status: Acute (2) Leukocytosis ICD Code: D72.829 Status: Acute (3) Pancreatitis ICD Code: K85.90 Status: Acute (4) Black stools ICD Code: K92.1 Status: Acute Assessment and Plan 60 y/o female with history of HTN, DM, HLD, Hypothyroid, gerd and neuropathy presented to the ED with complaints of severe abdominal pain for 1 week, CT suspicious for diverticulitis. Diverticulitis -Abdominal/pelvis CT shows abnormal sigmoid colon with wall thickening and pericolonic inflammatory change most likely representing a colitis or possibly diverticulitis. No abscess, significant free fluid, or free air is present. Repeat CT with PO contrast obtained 05/24 with similar findings - leukocytosis improved but most likely it was elevated due to steroid use. - Patient has received cipro, zosyn, and flagyl, but had allergic reaction to Cipro and Zosyn. Currently on Ertapenem 05/23 - GI is ff pending records from [facility]. - Star flagyl 500 mg tid Leukocytosis -most likely elevated due to solumedrol use during allergic reaction to antibiotics. -trending down. -continue to monitor. Pancreatitis -Mild elevation of lipase, improving. -Continue with supportive care as above. Questionable Black stools -Hemoccult stool negative. -Hemoglobin remained stable. -On IV Protonix. -patient can be scoped as outpatient if needed. -GI ff. CARLOS - Cr on admission 1.05, initially up trending, now improving - avoid nephrotoxic agents - continue IV hydration - continue to monitor closely Allergic reaction - likely to zosyn - s/p epi - cont solumedrol bid and benadryl BID DVT prophylaxis -Due to questionable black stools will hold Lovenox. -has SCDs. Discharge Planning Improving. continue with IV antibiotics per GI. Problem Qualifiers (1) Diverticulitis: Qualified Code: K57.32 - Diverticulitis of large intestine without perforation or abscess without bleeding (2) Pancreatitis: Hui Ochoa MD May 27, 2016 06:48
--- NOTE | 2016-05-27 08:40 | HHI.GIFU ---
Subjective Remarks Patient resting in bed. No fevers. Abdominal pain has improved. C/O significant diarrhea "like 100 times yesterday." She states whenever she gets up to urinate, she passes a small amount of liquid stool. No bleeding. Objective Vitals I&O Vital Signs Date Time Temp Pulse Resp B/P Pulse Ox O2 Delivery O2 Flow Rate FiO2 05/27/16 04:00 97.0 72 18 117/91 93 05/27/16 00:00 96.6 72 17 121/89 92 05/26/16 20:04 63 05/26/16 20:00 96.9 57 18 133/95 93 05/26/16 20:00 97.8 89 18 139/63 92 05/26/16 16:00 96.2 58 20 147/80 99 05/26/16 12:00 96.1 57 20 138/76 93 I/O 05/26/16 05/26/16 05/26/16 05/27/16 05/27/16 05/27/16 07:00 15:00 23:00 07:00 15:00 23:00 Intake Total 480 ml 720 ml 2322 ml 1348 ml Output Total 200 ml Balance 480 ml 720 ml 2122 ml 1348 ml Intake Oral 480 ml 720 ml IV Total 2322 ml 1348 ml Output Urine Total 200 ml # Voids 3 3 2 # Bowel Movements 1 1 Laboratory Laboratory Tests Test 05/26/16 05/26/16 05/26/16 05/27/16 09:29 12:35 20:45 05:05 White Blood Count 17.8 8.5 Red Blood Count 3.61 3.68 Hemoglobin 10.6 11.2 Hematocrit 32.9 33.9 Mean Corpuscular Volume 91.3 92.1 Mean Corpuscular Hemoglobin 29.5 30.5 Mean Corpuscular Hemoglobin 32.3 33.1 Concent Red Cell Distribution Width 14.0 13.7 Platelet Count 420 374 Mean Platelet Volume 7.7 8.0 Neutrophils (%) (Auto) 86.7 52.2 Lymphocytes (%) (Auto) 7.6 32.5 Monocytes (%) (Auto) 5.3 11.3 Eosinophils (%) (Auto) 0.1 3.1 Basophils (%) (Auto) 0.3 0.9 Neutrophils # (Auto) 15.4 4.5 Lymphocytes # (Auto) 1.4 2.8 Monocytes # (Auto) 0.9 1.0 Eosinophils # (Auto) 0.0 0.3 Basophils # (Auto) 0.1 0.1 CBC Comment DIFF FINAL DIFF FINAL Differential Comment Sodium Level 141 144 Potassium Level 4.2 4.3 Chloride Level 111 113 Carbon Dioxide Level 19.8 19.5 Anion Gap 10 12 Blood Urea Nitrogen 23 22 Creatinine 1.10 1.22 Estimat Glomerular Filtration 51 45 Rate Random Glucose 76 73 Calcium Level 8.5 8.8 Troponin I LESS THAN 0.02 Procalcitonin 0.67 Date/Time Procedure Status Source Growth 05/26/16 20:16 Aerobic Blood Culture Received Blood Peripheral Pending 05/26/16 20:16 Anaerobic Blood Culture Received Blood Peripheral Pending 05/25/16 06:10 Stool Occult Blood (SIDNEY) - Final Complete Stool Stool HEMOCCULT NEGATIVE Imaging Last Impressions Abdomen/Pelvis CT 05/24/16 0000 Signed Impressions: Service Date/Time: Thursday, May 24, 2016 21:16 - CONCLUSION: Abnormally thickened segment of mid sigmoid with concentric thickening of the wall and scattered diverticula in the sigmoid colon. The findings suggest either diverticulitis or a focal segment of colitis. No drainable fluid collections seen. Usman Mcelroy MD Physical Exam HEENT: PERR;A; normocephalic; atraumatic CHEST: CTA CARDIAC: RRR with no murmur gallop or rubs. ABDOMEN: Soft, obese, mild tenderness in LLQ; no hepatosplenomegaly; bowel sounds x 4. EXTREMITIES: No clubbing, cyanosis, or edema SKIN: Fine red rash improving. CLEANER: No focal deficits; A&O x3. Assessment and Plan Plan ASSESSMENT: - Colitis vs. diverticulitis with abdominal pain and recent bloody diarrhea. Abdomen/Pelvis CT 05/23/16 1. Abnormal sigmoid colon with wall thickening and pericolonic inflammatory change most likely representing a colitis or possibly diverticulitis. No abscess, significant free fluid, or free air is present. 2. Mild hepatomegaly with heterogeneous liver enhancement. 3. Coronary artery calcification and severe atherosclerotic disease of the aorta. Pt was having significant tenderness and increase in WBC on 05/24/16 and therefore had repeat CT Abdomen/Pelvis (05/24/16)----> Abnormally thickened segment of mid sigmoid with concentric thickening of the wall and scattered diverticula in the sigmoid colon. The findings suggest either diverticulitis or a focal segment of colitis. No drainable fluid collections seen. She recently had an EGD at [facility]. Invanz. Clinically, much improved. Only mild LLQ tenderness. Afebrile. Tolerating full liquids. Does report that she is now having significant diarrhea- "like a 100 times yesterday." This is a small amount of liquid stool when she urinates. Will advance diet and check CDiff. - Recent GI bleeding with a mixture of black tarry stool and bright red blood mixed within stool. Denies blood in stool today. Had recent EGD at [facility]. She reports that her colonoscopy was about a year ago with Dr. Fajardo and that she had "11 precancerous polyps removed." She reports 2 prior episodes of diverticulitis, last in 2014. Records requested. - Recent bloody diarrhea. No further episodes since she has been admitted to this facility. - Leukocytosis. Worsening. WBC today improving 15.8 (from 21.7 yesterday). Of note, was started on steroids for allergic reaction/rash. - Allergic reaction, rash. States she developed fine erythematous spotted rash after receiving cipro. On steroids. - Anemia. 11.2/33.9 - CARLOS. Improved. - Recent hospitalization for abdominal pain, bloody diarrhea. She reports that she was hospitalized from May 09- at [facility] for abdominal pain and bloody diarrhea. She states that she started having diarrhea a week prior to this hospitalization and that it consisted of a mixture of black tarry stool and bright red blood. She did not have abdominal pain initially. She then developed abdominal pain and went to [facility]. She states that while she was there she had no imaging done, but was told that she had diverticulitis. She specifically states that she did not have a CT scan. She was evaluated with an EGD by Dr. Fajardo and she reports that she was told that she had an ulcer. She states she was discharged home on 05/15 without any medications- she denies being given any prescriptions specifically for ulcer or diverticulitis. Pt poor historian- states no imaging was done but that she was told that she had diverticulitis. She reports she was evaluated with EGD and told she had ulcer. Pt adamantly states she was sent home without any medications for her diverticulitis or ulcer. PLAN: - Low residue diet - Send stool for CDiff - Cont. PPI - Cont. Invanz - Await records from [facility] - Supportive care - Further recommendations to follow based on results of above - Patient seen and examined by Dr. Whalen and myself and this note is written on his behalf Maria Isabel Wisdom May 27, 2016 08:40
[2016-05-27] MEDS: SODIUM CHLORIDE 0.9% FLUSH 10 ML FLUSH IV FLUSH SCH ×2 (09:00→21:00)
[2016-05-27] MEDS: PANTOPRAZOLE SOD 20 MG DELAYED RELEASE TAB PO SCH (09:38)
[2016-05-27] MEDS: FOLIC ACID 1 MG TAB PO SCH (09:38)
[2016-05-27] MEDS: CETIRIZINE HCL 10 MG TAB PO SCH (09:38)
[2016-05-27] MEDS: DULoxetine HCl DR 60 MG CAP PO SCH (09:38)
[2016-05-27] MEDS: diphenhydrAMINE HCL 25 MG CAP PO SCH ×2 (09:38→19:42)
[2016-05-27] MEDS: FLUCONAZOLE 100 MG TAB PO SCH (09:38)
[2016-05-27] MEDS: METOPROLOL TARTRATE 50 MG TAB PO SCH ×2 (09:38→19:42)
[2016-05-27] MEDS: busPIRone HCL 5 MG TAB PO SCH ×2 (09:38→19:42)
[2016-05-27] MEDS: methylPREDNISolone SOD SUCC 40 MG/1 ML VIAL IV PUSH SCH (09:39)
[2016-05-27] MEDS ORDERED: amLODIPine BESYLATE 5 MG TAB PO ONE (12:45)
[2016-05-27 14:42] LABS: C. DIFF TOXIN PCR POSITIVE (NEGATIVE)
[2016-05-27 14:45] LABS: C. DIFF EPI 027 PRESUMPTIVE NEGATIVE (NEGATIVE)
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
--- NOTE | 2016-05-27 17:22 | HHI.IDPN ---
Subjective Subjective Remarks 60 y/o female with history of HTN, DM, HLD, Hypothyroid, gerd and neuropathy presented to the ED with complaints of severe abdominal pain for 1 week. Patient was admitted at [facility] for 5 days a week ago for diverticulitis and discharged home with no medications. Since discharge she has continued to have constant diarrhea, severe LLQ abdominal pain and vomiting. When she was first admitted to [facility] she had black color and red color stools, and states today that he started to get dark again. She states she had an EGD performed at [facility], but was only told she had an irritated ulcer. She sees Dr. Ford for outpatient GI, and states last colonoscopy was one year ago, with no problems. Patient was treated with IV zosyn and Dilaudid and developed Maculopapular rash both were DCed at same time. Started on IV ertapenem no blood cultures drawn since admission. ID consulted for eval and Mment of Persistent leucocytosis, diverticulitis in patient with multiple antibiotic allergies. Clinically feels better compared to admission slightly now able to eat some but still with significant abdominal pain and discomfort. Overnight events reviewed No fevers No rash Complains of diarrhea every time she goes to the bathroom to pee. Complains of abdominal cramps occ. Feels better today slightly and smiling. Antibiotics Ertapenem IV (PCN allergy severe diffuse rash) Flagyl oral for Cdiff Diflucan oral. Lines Line sites with no e.o infection Past Medical History reviewed Allergies: Coded Allergies: Sulfamethoxazole (Verified Allergy, Severe, Rash, 05/22/16) Trimethoprim (Verified Allergy, Severe, 05/22/16) Zosyn (Verified Allergy, Severe, Rash, 05/26/16) Maculopapular all over the body. Was also on Dilaudid. Both stopped at same time and rash resolved. Ciprofloxacin (Verified Allergy, Intermediate, Flushing, red raised rash, 05/23/16) Nalbuphine (Verified Allergy, Unknown, 05/22/16) Objective . Vital Signs Date Time Temp Pulse Resp B/P Pulse Ox O2 Delivery O2 Flow Rate FiO2 05/27/16 12:17 64 05/27/16 12:00 97.8 70 16 172/103 94 163/97 05/27/16 08:00 97.6 55 16 161/103 93 150/96 05/27/16 04:00 97.0 72 18 117/91 93 05/27/16 00:00 96.6 72 17 121/89 92 05/26/16 20:04 63 05/26/16 20:00 96.9 57 18 133/95 93 05/26/16 20:00 97.8 89 18 139/63 92 05/26/16 05/26/16 05/27/16 15:00 23:00 07:00 Intake Total 720 ml 2322 ml 1348 ml Output Total 200 ml Balance 720 ml 2122 ml 1348 ml Intake Oral 720 ml IV Total 2322 ml 1348 ml Output Urine Total 200 ml # Voids 3 2 # Bowel Movements 1 . Laboratory Tests Test 05/26/16 05/27/16 09:29 05:05 White Blood Count 17.8 TH/MM3 8.5 TH/MM3 Red Blood Count 3.61 MIL/MM3 3.68 MIL/MM3 Hemoglobin 10.6 GM/DL 11.2 GM/DL Hematocrit 32.9 % 33.9 % Mean Corpuscular Volume 91.3 FL 92.1 FL Mean Corpuscular Hemoglobin 29.5 PG 30.5 PG Mean Corpuscular Hemoglobin 32.3 % 33.1 % Concent Red Cell Distribution Width 14.0 % 13.7 % Platelet Count 420 TH/MM3 374 TH/MM3 Mean Platelet Volume 7.7 FL 8.0 FL Neutrophils (%) (Auto) 86.7 % 52.2 % Lymphocytes (%) (Auto) 7.6 % 32.5 % Monocytes (%) (Auto) 5.3 % 11.3 % Eosinophils (%) (Auto) 0.1 % 3.1 % Basophils (%) (Auto) 0.3 % 0.9 % Neutrophils # (Auto) 15.4 TH/MM3 4.5 TH/MM3 Lymphocytes # (Auto) 1.4 TH/MM3 2.8 TH/MM3 Monocytes # (Auto) 0.9 TH/MM3 1.0 TH/MM3 Eosinophils # (Auto) 0.0 TH/MM3 0.3 TH/MM3 Basophils # (Auto) 0.1 TH/MM3 0.1 TH/MM3 CBC Comment DIFF FINAL DIFF FINAL Differential Comment Laboratory Tests Test 05/26/16 05/26/16 05/26/16 05/27/16 09:29 12:35 20:45 05:05 Sodium Level 141 MEQ/L 144 MEQ/L Potassium Level 4.2 MEQ/L 4.3 MEQ/L Chloride Level 111 MEQ/L 113 MEQ/L Carbon Dioxide Level 19.8 MEQ/L 19.5 MEQ/L Anion Gap 10 MEQ/L 12 MEQ/L Blood Urea Nitrogen 23 MG/DL 22 MG/DL Creatinine 1.10 MG/DL 1.22 MG/DL Estimat Glomerular Filtration 51 ML/MIN 45 ML/MIN Rate Random Glucose 76 MG/DL 73 MG/DL Calcium Level 8.5 MG/DL 8.8 MG/DL Troponin I LESS THAN 0.02 NG/ML Procalcitonin 0.67 ng/mL Microbiology Date/Time Procedure Status Source Growth 05/25/16 06:10 Stool Occult Blood (SIDNEY) - Final Complete Stool Stool HEMOCCULT NEGATIVE 05/26/16 20:00 Aerobic Blood Culture - Preliminary Resulted Blood Peripheral NO GROWTH IN 1 DAY 05/26/16 20:00 Anaerobic Blood Culture - Preliminary Resulted Blood Peripheral NO GROWTH IN 1 DAY 05/26/16 20:16 Aerobic Blood Culture - Preliminary Resulted Blood Peripheral NO GROWTH IN 1 DAY 05/26/16 20:16 Anaerobic Blood Culture - Preliminary Resulted Blood Peripheral NO GROWTH IN 1 DAY Imaging Last Impressions Abdomen/Pelvis CT 05/24/16 0000 Signed Impressions: Service Date/Time: Tuesday, May 24, 2016 21:16 - CONCLUSION: Abnormally thickened segment of mid sigmoid with concentric thickening of the wall and scattered diverticula in the sigmoid colon. The findings suggest either diverticulitis or a focal segment of colitis. No drainable fluid collections seen. Usman Mcelroy MD Physical Exam GENERAL: This is a well-nourished, well-developed patient, in no apparent distress. SKIN: maculopapular rash all over the body. HEAD: Atraumatic. Normocephalic. No temporal or scalp tenderness. EYES: Pupils equal round and reactive. Extraocular motions intact. No scleral icterus. No injection or drainage. ENT: Nose without bleeding, purulent drainage or septal hematoma. Throat without erythema, tonsillar hypertrophy or exudate. Uvula midline. Airway patent. NECK: Trachea midline. Supple, nontender, no meningeal signs. CARDIOVASCULAR: RRR RESPIRATORY: Clear to auscultation. Breath sounds equal bilaterally. No wheezes , rales, or rhonchi. GASTROINTESTINAL: Abdomen soft, tenderness in LLQ. MUSCULOSKELETAL: Extremities without clubbing, cyanosis, or edema. NEUROLOGICAL: Awake and alert. Grossly non focal Psych: cooperative. Flat affect, tearful and sad. IV line sites with no e.o infection. Assessment & Plan Remarks Acute diverticulitis, micro leak related acute peritonitis. 3rd episode of diverticulitis needing admission. Acute pancreatitis new first known episode. Diarrhea Cdiff positive. Persistent leucocytosis (SIRS from inflammation vs fungal vs resistant infection vs drug fever). Check Procalcitonin. Depression clinical diagnosis. H/o PTSD. Acute renal failure: ? sepsis, prerenal, meds. Recs: Continue ertapenem IV for now (ASP: maculopapular rash while on Zosyn IV and Dilaudid, both stopped at same time, will consider challenging to cephalosporin) Continue Diflucan (GI sepsis in patient with Diverticulitis ? peritonitis) Continue oral flagyl. CT abd pelvis reviewed and compared: no abscess. Appreciate psych recommendations. Follow blood cultures Follow clinically. Gladys Gandara MD May 27, 2016 17:22
[2016-05-27] MEDS: LACTOBACILLUS ACIDOPHILUS TAB PO SCH (18:07)
[2016-05-27] MEDS: ERTAPENEM 1,000 MG/NS 100 ML IV SCH ×2 (19:41)
[2016-05-27] MEDS: ZOLPIDEM TARTRATE 5 MG TAB PO SCH (19:42)
[2016-05-27] MEDS: GABAPENTIN 300 MG CAP PO SCH (19:42)
[2016-05-27] MEDS: ATORVASTATIN 20 MG TAB PO SCH (19:42)
[2016-05-27] MEDS: metroNIDAZOLE 500 MG TAB PO SCH (21:27)
[2016-05-28] VITALS (7 sets, daily range): BP systolic 127–194; BP diastolic 82–103; PULSE 52–81; RESP 16–18; TEMP 96.5–97; O2SAT 93–98
[2016-05-28] MEDS: ACETAMINOPHEN/HYDROcodone 325 MG/5 MG TAB PO PRN ×4 (04:04→18:13)
[2016-05-28] MEDS: GEMFIBROZIL 600 MG TAB PO SCH ×2 (05:56→18:07)
[2016-05-28] MEDS: metroNIDAZOLE 500 MG TAB PO SCH ×3 (05:56→22:37)
[2016-05-28] MEDS: LEVOTHYROXINE SODIUM 25 MCG TAB PO SCH (05:56)
[2016-05-28] MEDS: glipiZIDE 5 MG TAB PO SCH ×2 (05:56→18:07)
[2016-05-28 05:58] LABS: AUTOMATED NEUTROPHIL # 7.1 TH/MM3 (1.8-7.7); BASOPHIL % 0.2 % (0.0-2.0); EOSINOPHIL % 0.1 % (0.0-4.0); HEMATOCRIT 30.2 % (35.0-46.0); HEMO FLAGS DIFF FINAL; LYMPH % 13.4 % (9.0-44.0); LYMPHOCYTE # 1.3 TH/MM3 (1.0-4.8); MEAN CELL VOLUME 91.3 FL (80.0-100.0); MEAN CORPUSCULAR HEMOGLOBIN 31.5 PG (27.0-34.0); MEAN CORPUSCULAR HGB CONC 34.5 % (32.0-36.0); MONO % 10.4 % (0.0-8.0); NEUT % 75.9 % (16.0-70.0); PLATELET COUNT 317 TH/MM3 (150-450); RED BLOOD COUNT 3.31 MIL/MM3 (4.00-5.30); RED CELL DISTRIBUTION WIDTH 13.5 % (11.6-17.2); WHITE BLOOD COUNT 9.4 TH/MM3 (4.0-11.0)
[2016-05-28 06:22] LABS: BICARBONATE 22.1 MEQ/L (21.0-32.0); POTASSIUM 4.6 MEQ/L (3.5-5.1)
[2016-05-28] MEDS: SODIUM CHLORIDE 0.9% FLUSH 10 ML FLUSH IV FLUSH SCH ×2 (09:00→21:00)
[2016-05-28] MEDS: methylPREDNISolone SOD SUCC 40 MG/1 ML VIAL IV PUSH SCH (09:46)
[2016-05-28] MEDS: LACTOBACILLUS ACIDOPHILUS TAB PO SCH ×3 (09:46→18:11)
[2016-05-28] MEDS: CETIRIZINE HCL 10 MG TAB PO SCH (09:46)
[2016-05-28] MEDS: diphenhydrAMINE HCL 25 MG CAP PO SCH ×2 (09:46→22:37)
[2016-05-28] MEDS: FLUCONAZOLE 100 MG TAB PO SCH (09:46)
[2016-05-28] MEDS: amLODIPine BESYLATE 5 MG TAB PO SCH (09:47)
[2016-05-28] MEDS: METOPROLOL TARTRATE 50 MG TAB PO SCH ×2 (09:47→22:37)
[2016-05-28] MEDS: FOLIC ACID 1 MG TAB PO SCH (09:47)
[2016-05-28] MEDS: PANTOPRAZOLE SOD 20 MG DELAYED RELEASE TAB PO SCH (09:47)
[2016-05-28] MEDS: busPIRone HCL 5 MG TAB PO SCH ×2 (09:47→22:37)
[2016-05-28] MEDS: DULoxetine HCl DR 60 MG CAP PO SCH (13:46)
--- NOTE | 2016-05-28 14:54 | HHI.PR ---
Subjective Remarks The patient was seen early today. She is telling me she had 10 times diarrhea since yesterday says with every bowel movement. No fever or chills. Still with abdominal pain more on the left lower quadrant. Has some nausea, really with antiemetics. No vomiting. Objective Vitals Vital Signs Date Time Temp Pulse Resp B/P Pulse Ox O2 Delivery O2 Flow Rate FiO2 05/28/16 12:00 96.5 53 18 167/95 95 05/28/16 09:10 174/102 05/28/16 09:00 52 16 194/94 98 05/28/16 04:00 96.6 73 18 127/97 94 05/28/16 00:00 96.7 70 18 161/103 93 05/27/16 20:06 56 05/27/16 20:00 97.3 66 18 172/105 92 05/27/16 16:00 97.7 75 16 170/111 94 175/113 I/O 05/27/16 05/27/16 05/27/16 05/28/16 05/28/16 05/28/16 07:00 15:00 23:00 07:00 15:00 23:00 Intake Total 1348 ml 720 ml 2330 ml Balance 1348 ml 720 ml 2330 ml Intake Oral 720 ml IV Total 1348 ml 2330 ml # Voids 3 2 # Bowel Movements 2 Result Diagram: 05/28/16 0422 05/28/16 0422 Imaging Last Impressions Abdomen/Pelvis CT 05/24/16 0000 Signed Impressions: Service Date/Time: Tuesday, May 24, 2016 21:16 - CONCLUSION: Abnormally thickened segment of mid sigmoid with concentric thickening of the wall and scattered diverticula in the sigmoid colon. The findings suggest either diverticulitis or a focal segment of colitis. No drainable fluid collections seen. Usman Mcelroy MD Objective Remarks GENERAL: 60 yo F well nourished well developed patient, at the margin of the bed, appears in acute distress. SKIN: Warm and dry. HEAD: Atraumatic. Normocephalic. EYES: Pupils equal and round. No scleral icterus. No injection or drainage. ENT: No nasal bleeding or discharge. Mucous membranes pink and moist. NECK: Trachea midline. No JVD. CARDIOVASCULAR: Regular rate and rhythm. RESPIRATORY: No accessory muscle use. Clear to auscultation. Breath sounds equal bilaterally. GASTROINTESTINAL: Abdomen soft, left lower quadrant tenderness on palpation, nondistended. MUSCULOSKELETAL: Extremities without clubbing, cyanosis, or edema. No obvious deformities. NEUROLOGICAL: Awake and alert. No obvious cranial nerve deficits. Motor grossly within normal limits. Five out of 5 muscle strength in the arms and legs. Normal speech. PSYCHIATRIC: Appropriate mood and affect; insight and judgment normal. A/P Problem List: (1) Diverticulitis ICD Code: K57.92 Status: Acute (2) Leukocytosis ICD Code: D72.829 Status: Acute (3) Pancreatitis ICD Code: K85.90 Status: Acute (4) Black stools ICD Code: K92.1 Status: Acute Assessment and Plan 60 y/o female with history of HTN, DM, HLD, Hypothyroid, gerd and neuropathy presented to the ED with complaints of severe abdominal pain for 1 week, CT suspicious for diverticulitis. Diverticulitis -Abdominal/pelvis CT shows abnormal sigmoid colon with wall thickening and pericolonic inflammatory change most likely representing a colitis or possibly diverticulitis. No abscess, significant free fluid, or free air is present. Repeat CT with PO contrast obtained 05/24 with similar findings - leukocytosis improved but most likely it was elevated due to steroid use. - Patient has received cipro, zosyn, and flagyl, but had allergic reaction to Cipro and Zosyn. Currently on Ertapenem 05/23 - GI is ff pending records from [facility]. - Continue flagyl 500 mg tid Leukocytosis -most likely elevated due to solumedrol use during allergic reaction to antibiotics. -trending down. -continue to monitor. Pancreatitis -Mild elevation of lipase, improving. -Continue with supportive care as above. Questionable Black stools -Hemoccult stool negative. -Hemoglobin remained stable. -On IV Protonix. -patient can be scoped as outpatient if needed. -GI ff. CARLOS - Cr on admission 1.05, initially up trending, now improving - avoid nephrotoxic agents - continue IV hydration - continue to monitor closely Allergic reaction - likely to zosyn - s/p epi - cont solumedrol bid and benadryl BID DVT prophylaxis -Due to questionable black stools will hold Lovenox. -has SCDs. Discharge Planning Improving. continue with IV antibiotics per GI/ ID. Possible will discharge the patient tomorrow if improved and cleared by consultants. Problem Qualifiers (1) Diverticulitis: Qualified Code: K57.32 - Diverticulitis of large intestine without perforation or abscess without bleeding (2) Pancreatitis: Hui Ochoa MD May 28, 2016 14:54
--- NOTE | 2016-05-28 15:56 | HHI.GIFU ---
Subjective Remarks Resting in bed. States diarrhea has improved and she has not had a bowel movement today. (Maria Isabel Wisdom) Objective Vitals I&O Vital Signs Date Time Temp Pulse Resp B/P Pulse Ox O2 Delivery O2 Flow Rate FiO2 05/28/16 12:00 96.5 53 18 167/95 95 05/28/16 09:10 174/102 05/28/16 09:00 52 16 194/94 98 05/28/16 04:00 96.6 73 18 127/97 94 05/28/16 00:00 96.7 70 18 161/103 93 05/27/16 20:06 56 05/27/16 20:00 97.3 66 18 172/105 92 05/27/16 16:00 97.7 75 16 170/111 94 175/113 I/O 05/27/16 05/27/16 05/27/16 05/28/16 05/28/16 05/28/16 07:00 15:00 23:00 07:00 15:00 23:00 Intake Total 1348 ml 720 ml 2330 ml 600 ml 870 ml Balance 1348 ml 720 ml 2330 ml 600 ml 870 ml Intake Oral 720 ml 600 ml IV Total 1348 ml 2330 ml 870 ml # Voids 3 2 5 # Bowel Movements 2 0 Laboratory Laboratory Tests Test 05/28/16 04:22 White Blood Count 9.4 Red Blood Count 3.31 Hemoglobin 10.4 Hematocrit 30.2 Mean Corpuscular Volume 91.3 Mean Corpuscular Hemoglobin 31.5 Mean Corpuscular Hemoglobin 34.5 Concent Red Cell Distribution Width 13.5 Platelet Count 317 Mean Platelet Volume 8.0 Neutrophils (%) (Auto) 75.9 Lymphocytes (%) (Auto) 13.4 Monocytes (%) (Auto) 10.4 Eosinophils (%) (Auto) 0.1 Basophils (%) (Auto) 0.2 Neutrophils # (Auto) 7.1 Lymphocytes # (Auto) 1.3 Monocytes # (Auto) 1.0 Eosinophils # (Auto) 0.0 Basophils # (Auto) 0.0 CBC Comment DIFF FINAL Differential Comment Sodium Level 141 Potassium Level 4.6 Chloride Level 108 Carbon Dioxide Level 22.1 Anion Gap 11 Blood Urea Nitrogen 20 Creatinine 1.19 Estimat Glomerular Filtration 47 Rate Random Glucose 273 Calcium Level 8.9 Date/Time Procedure Status Source Growth 4/3/17 20:16 Aerobic Blood Culture - Preliminary Resulted Blood Peripheral NO GROWTH IN 2 DAYS 05/26/16 20:16 Anaerobic Blood Culture - Preliminary Resulted Blood Peripheral NO GROWTH IN 2 DAYS 05/25/16 06:10 Stool Occult Blood (SIDNEY) - Final Complete Stool Stool HEMOCCULT NEGATIVE Imaging Last Impressions Abdomen/Pelvis CT 05/24/16 0000 Signed Impressions: Service Date/Time: Tuesday, May 24, 2016 21:16 - CONCLUSION: Abnormally thickened segment of mid sigmoid with concentric thickening of the wall and scattered diverticula in the sigmoid colon. The findings suggest either diverticulitis or a focal segment of colitis. No drainable fluid collections seen. Usman Mcelroy MD Physical Exam HEENT: PERR;A; normocephalic; atraumatic CHEST: CTA CARDIAC: RRR with no murmur gallop or rubs. ABDOMEN: Soft, obese, mild tenderness in LLQ; no hepatosplenomegaly; bowel sounds x 4. EXTREMITIES: No clubbing, cyanosis, or edema SKIN: Fine red rash improving. [employer]EN[employer] OFFICE OPERATOR: No focal deficits; A&O x3. (Maria Isabel Wisdom) Assessment and Plan Plan ASSESSMENT: - Colitis vs. diverticulitis with abdominal pain and recent bloody diarrhea. Abdomen/Pelvis CT 05/23/16 1. Abnormal sigmoid colon with wall thickening and pericolonic inflammatory change most likely representing a colitis or possibly diverticulitis. No abscess, significant free fluid, or free air is present. 2. Mild hepatomegaly with heterogeneous liver enhancement. 3. Coronary artery calcification and severe atherosclerotic disease of the aorta. Pt was having significant tenderness and increase in WBC on 05/24/16 and therefore had repeat CT Abdomen/Pelvis (05/24/16)----> Abnormally thickened segment of mid sigmoid with concentric thickening of the wall and scattered diverticula in the sigmoid colon. The findings suggest either diverticulitis or a focal segment of colitis. No drainable fluid collections seen. She recently had an EGD at [facility]. Clinically, much improved. Only mild LLQ tenderness. Afebrile. Pt c/o significant diarrhea, CDiff came back (+), 027 negative. She was started on Flagyl and is doing much better today - no diarrhea today. Will continue flagyl and d/c invanz. - Recent GI bleeding with a mixture of black tarry stool and bright red blood mixed within stool. Denies blood in stool today. Had recent EGD at [facility]. She reports that her colonoscopy was about a year ago with Dr. Fajardo and that she had "11 precancerous polyps removed." She reports 2 prior episodes of diverticulitis, last in 2014. No obvious GI bleeding during this hospitalization. - Recent bloody diarrhea. SHe initially was not having any diarrhea, but started having this yesterday and CDidff came back (+). She was started on Flagyl and this improved. - Leukocytosis. Improved. - Allergic reaction, rash. States she developed fine erythematous spotted rash after receiving cipro. On steroids. - Anemia. .2. - CARLOS. Improved. - Recent hospitalization for abdominal pain, bloody diarrhea. She reports that she was hospitalized from May 09- at [facility] for abdominal pain and bloody diarrhea. She states that she started having diarrhea a week prior to this hospitalization and that it consisted of a mixture of black tarry stool and bright red blood. She did not have abdominal pain initially. She then developed abdominal pain and went to [facility]. She states that while she was there she had no imaging done, but was told that she had diverticulitis. She specifically states that she did not have a CT scan. She was evaluated with an EGD by Dr. Fajardo and she reports that she was told that she had an ulcer. She states she was discharged home on 05/15 without any medications- she denies being given any prescriptions specifically for ulcer or diverticulitis. Pt poor historian- states no imaging was done but that she was told that she had diverticulitis. She reports she was evaluated with EGD and told she had ulcer. Pt adamantly states she was sent home without any medications for her diverticulitis or ulcer. PLAN: - Low residue diet - D/C Invanz - Cont. Flagyl - Cont. PPI - Monitor stool output - Monitor labs - Supportive care - Further recommendations to follow based on results of above - Patient seen and examined by Dr. Morillo and myself and this note is written on his behalf (Maria Isabel Wisdom) Physician Comments Seen and examined with [facility], stools +ve for c. diff. Started on flagyl. Improvement in symptoms. Can dc home on flagyl with gi fu for outpt. colonoscopy. Will sign off, reconsult as needed. Thank you (Alexey Morillo MD) Maria Isabel Wisdom May 28, 2016 15:56 Alexey Morillo MD May 28, 2016 18:56
--- NOTE | 2016-05-28 16:34 | HHI.IDPN ---
Subjective Subjective Remarks 60 y/o female with history of HTN, DM, HLD, Hypothyroid, gerd and neuropathy presented to the ED with complaints of severe abdominal pain for 1 week. Patient was admitted at [facility] for 5 days a week ago for diverticulitis and discharged home with no medications. Since discharge she has continued to have constant diarrhea, severe LLQ abdominal pain and vomiting. When she was first admitted to [facility] she had black color and red color stools, and states today that he started to get dark again. She states she had an EGD performed at [facility], but was only told she had an irritated ulcer. She sees Dr. Ford for outpatient GI, and states last colonoscopy was one year ago, with no problems. Patient was treated with IV zosyn and Dilaudid and developed Maculopapular rash both were DCed at same time. Started on IV ertapenem no blood cultures drawn since admission. ID consulted for eval and Mment of Persistent leucocytosis, diverticulitis in patient with multiple antibiotic allergies. Clinically feels better compared to admission slightly now able to eat some but still with significant abdominal pain and discomfort. Delayed entry: patient seen at 11 am. Overnight events reviewed No fevers No rash Diarrhea last episode at 8 pm night before. No BMs till 11 am. Abd pain and cramps reduced. Antibiotics Ertapenem IV (PCN allergy severe diffuse rash) Flagyl oral for Cdiff Diflucan oral. Lines Line sites with no e.o infection Past Medical History reviewed Allergies: Coded Allergies: Sulfamethoxazole (Verified Allergy, Severe, Rash, 05/22/16) Trimethoprim (Verified Allergy, Severe, 05/22/16) Zosyn (Verified Allergy, Severe, Rash, 05/26/16) Maculopapular all over the body. Was also on Dilaudid. Both stopped at same time and rash resolved. Ciprofloxacin (Verified Allergy, Intermediate, Flushing, red raised rash, 05/23/16) Nalbuphine (Verified Allergy, Unknown, 05/22/16) Objective . Vital Signs Date Time Temp Pulse Resp B/P Pulse Ox O2 Delivery O2 Flow Rate FiO2 05/28/16 12:00 96.5 53 18 167/95 95 05/28/16 09:10 174/102 05/28/16 09:00 52 16 194/94 98 05/28/16 04:00 96.6 73 18 127/97 94 05/28/16 00:00 96.7 70 18 161/103 93 05/27/16 20:06 56 05/27/16 20:00 97.3 66 18 172/105 92 05/27/16 05/27/16 05/28/16 15:00 23:00 07:00 Intake Total 720 ml 2330 ml Balance 720 ml 2330 ml Intake Oral 720 ml IV Total 2330 ml # Voids 3 2 # Bowel Movements 2 . Laboratory Tests Test 05/27/16 05/28/16 05:05 04:22 White Blood Count 8.5 TH/MM3 9.4 TH/MM3 Red Blood Count 3.68 MIL/MM3 3.31 MIL/MM3 Hemoglobin 11.2 GM/DL 10.4 GM/DL Hematocrit 33.9 % 30.2 % Mean Corpuscular Volume 92.1 FL 91.3 FL Mean Corpuscular Hemoglobin 30.5 PG 31.5 PG Mean Corpuscular Hemoglobin 33.1 % 34.5 % Concent Red Cell Distribution Width 13.7 % 13.5 % Platelet Count 374 TH/MM3 317 TH/MM3 Mean Platelet Volume 8.0 FL 8.0 FL Neutrophils (%) (Auto) 52.2 % 75.9 % Lymphocytes (%) (Auto) 32.5 % 13.4 % Monocytes (%) (Auto) 11.3 % 10.4 % Eosinophils (%) (Auto) 3.1 % 0.1 % Basophils (%) (Auto) 0.9 % 0.2 % Neutrophils # (Auto) 4.5 TH/MM3 7.1 TH/MM3 Lymphocytes # (Auto) 2.8 TH/MM3 1.3 TH/MM3 Monocytes # (Auto) 1.0 TH/MM3 1.0 TH/MM3 Eosinophils # (Auto) 0.3 TH/MM3 0.0 TH/MM3 Basophils # (Auto) 0.1 TH/MM3 0.0 TH/MM3 CBC Comment DIFF FINAL DIFF FINAL Differential Comment Laboratory Tests Test 05/26/16 05/27/16 05/28/16 20:45 05:05 04:22 Procalcitonin 0.67 ng/mL Sodium Level 144 MEQ/L 141 MEQ/L Potassium Level 4.3 MEQ/L 4.6 MEQ/L Chloride Level 113 MEQ/L 108 MEQ/L Carbon Dioxide Level 19.5 MEQ/L 22.1 MEQ/L Anion Gap 12 MEQ/L 11 MEQ/L Blood Urea Nitrogen 22 MG/DL 20 MG/DL Creatinine 1.22 MG/DL 1.19 MG/DL Estimat Glomerular Filtration 45 ML/MIN 47 ML/MIN Rate Random Glucose 73 MG/DL 273 MG/DL Calcium Level 8.8 MG/DL 8.9 MG/DL Microbiology Date/Time Procedure Status Source Growth 05/26/16 20:00 Aerobic Blood Culture - Preliminary Resulted Blood Peripheral NO GROWTH IN 2 DAYS 05/26/16 20:00 Anaerobic Blood Culture - Preliminary Resulted Blood Peripheral NO GROWTH IN 2 DAYS 05/26/16 20:16 Aerobic Blood Culture - Preliminary Resulted Blood Peripheral NO GROWTH IN 2 DAYS 05/26/16 20:16 Anaerobic Blood Culture - Preliminary Resulted Blood Peripheral NO GROWTH IN 2 DAYS Imaging Last Impressions Abdomen/Pelvis CT 05/24/16 0000 Signed Impressions: Service Date/Time: Tuesday, May 24, 2016 21:16 - CONCLUSION: Abnormally thickened segment of mid sigmoid with concentric thickening of the wall and scattered diverticula in the sigmoid colon. The findings suggest either diverticulitis or a focal segment of colitis. No drainable fluid collections seen. Usman Mcelroy MD Physical Exam GENERAL: This is a well-nourished, well-developed patient, in no apparent distress. SKIN: maculopapular rash all over the body. HEAD: Atraumatic. Normocephalic. No temporal or scalp tenderness. EYES: Pupils equal round and reactive. Extraocular motions intact. No scleral icterus. No injection or drainage. ENT: Nose without bleeding, purulent drainage or septal hematoma. Throat without erythema, tonsillar hypertrophy or exudate. Uvula midline. Airway patent. NECK: Trachea midline. Supple, nontender, no meningeal signs. CARDIOVASCULAR: RRR RESPIRATORY: Clear to auscultation. Breath sounds equal bilaterally. No wheezes , rales, or rhonchi. GASTROINTESTINAL: Abdomen soft, tenderness in LLQ. MUSCULOSKELETAL: Extremities without clubbing, cyanosis, or edema. NEUROLOGICAL: Awake and alert. Grossly non focal Psych: cooperative. Flat affect, tearful and sad. IV line sites with no e.o infection. Assessment & Plan Remarks Acute diverticulitis, micro leak related acute peritonitis. 3rd episode of diverticulitis needing admission. Acute pancreatitis new first known episode. Diarrhea Cdiff positive. Persistent leucocytosis (SIRS from inflammation vs fungal vs resistant infection vs drug fever). Check Procalcitonin. Depression clinical diagnosis. H/o PTSD. Acute renal failure: ? sepsis, prerenal, meds. Recs: Continue ertapenem IV for 7 additional days post discharge for diverticulitis. patient did not have diarrhea on presentation and wbc was lower. Diarrhea, WBC increase occurred later ? Diverticulits with later development of Cdiff. DC Diflucan Continue oral flagyl for total of 14 days from last antibiotic dose (06/19/2016 : tentative stop date) DC Infusion orders in chart. No labs needed post discharge as short 1 week course. Midline placement. No PICC needed.. Will sign off please call back if any change in clinical condition or questions. Gladys Gandara MD May 28, 2016 16:34
[2016-05-28] MEDS: SODIUM CHLOR 0.9% 1000 ML INJ 1,000 ML IV SCH ×2 (19:20→22:38)
[2016-05-28] MEDS ORDERED: ASP: Documented allergy to Penicillins or Cephalosporins PRN (22:15)
[2016-05-28] MEDS ORDERED: MISCELLANEOUS PHARMACY INFORMATION XX PRN (22:15)
--- NOTE | 2016-05-28 22:24 | HHI.FF ---
Infusion Therapy Location of Infusion Therapy: [facility] IV Infusion Order Patient Information Appointment Date: May 29, 2016 Patient Weight 95.2 kg Diagnosis: Diagnosis Diverticulitis Cdiff Colitis Coded Allergies: Sulfamethoxazole (Verified Allergy, Severe, Rash, 05/22/16) Trimethoprim (Verified Allergy, Severe, 05/22/16) Zosyn (Verified Allergy, Severe, Rash, 05/26/16) Maculopapular all over the body. Was also on Dilaudid. Both stopped at same time and rash resolved. Ciprofloxacin (Verified Allergy, Intermediate, Flushing, red raised rash, 05/23/16) Nalbuphine (Verified Allergy, Unknown, 05/22/16) Administer Medication Ertapenem 1 gram IV q 24 hours Start Treatment: May 29, 2016 Stop Treatment: Jun 05, 2016 Additional Information Venous access: Other (Midline) Additional Instructions [x] Peripheral flush and dressing changes per protocol [x] Implanted port and central line controller: * Implanted port: 10 ml Normal Saline followed by 5 ml Heparin 100 units/ml Heparin flush after each use and monthly to maintain. [] May leave port accessed during therapy. [] May leave peripheral site accessed for duration of therapy. [x] If patient has SOB or respiratory distress, check oxygen saturation. If less than 90% or clinical signs of respiratory distress, administer oxygen at 2 L/min. via nasal cannula and notify physician. [x] Anaphylaxis/Reaction orders: * Stop infusion. * Keep IV line open with saline flush. * Notify physician. * Monitor vital signs every 15 minutes until symptoms resolve. * Check Oxygen saturation; Oxygen at 2 L/min. via nasal cannula if less than 90% or clinical signs of respiratory distress. * Administer diphenhydramine (Benadryl) 25 mg IV STAT, (unless patient has received as pre-med). May repeat once, if necessary. * Solu-Cortef 250 mg IVP over 30-60 seconds, use 100 mg vials for each dissolution. * Epinephrine (1mg/1 ml) 0.3 mg subcutaneously or IVP now with any signs of respiratory distress. * Check with physician for new additional pre-med orders if patient is re- challenged or re-treated. [x] May remove PICC line when treatment complete, after confirming with Physician. [x] If the patient is admitted to the hospital, the ED, or transferred via [facility] , complete transfer form including medication reconciliation order sheet. Laboratory Tests Additional Information Call with change in clinical condition or problems to: Lucius or Covering ID Physician Follow up appt: Follow up with GI. Follow up with PCP Follow up with other MDs as planned. Counseling: Counseled about medication side effects Counseled about PICC line care and hand hygiene. Gladys Gandara MD May 28, 2016 22:24
[2016-05-28] MEDS ORDERED: METR-1 PO (22:34)
[2016-05-28] MEDS ORDERED: SOLU250I IV PUSH (22:34)
[2016-05-28] MEDS ORDERED: INVA1INJ IV (22:34)
[2016-05-28] MEDS ORDERED: EPIN1INJ21 SQ (22:34)
[2016-05-28] MEDS ORDERED: EPIN1INJ21 IV PUSH (22:34)
[2016-05-28] MEDS: ATORVASTATIN 20 MG TAB PO SCH (22:36)
[2016-05-28] MEDS: GABAPENTIN 300 MG CAP PO SCH (22:37)
[2016-05-28] MEDS: ZOLPIDEM TARTRATE 5 MG TAB PO SCH (22:37)
[2016-05-28] MEDS ORDERED: ERTAPENEM INJ 1,000 MG in SODIUM CHLORIDE 0.9% INJ 100 ML IV SCH (23:00)
[2016-05-29] VITALS: BP 132/91; PULSE 77; RESP 18; TEMP 96.4; O2SAT 94
[2016-05-29 04:00] VITALS: BP 145/89; PULSE 52; RESP 18; TEMP 97; O2SAT 97
--- NOTE | 2016-05-29 07:38 | HHI.DS ---
Discharge Summary Admission Date May 23, 2016 at 02:40 Discharge Date: May 29, 2016 Admitting Diagnosis Diverticulitis (1) Diverticulitis ICD Code: K57.92 Diagnosis: Principal (2) Leukocytosis ICD Code: D72.829 Diagnosis: Principal (3) Pancreatitis ICD Code: K85.90 Diagnosis: Principal Procedures none Brief History - From Admission 60 y/o female with history of HTN, DM, HLD, Hypothyroid, gerd and neuropathy presented to the ED with complaints of severe abdominal pain for 1 week. Patient was admitted at [facility] for 5 days a week ago for diverticulitis and discharged home with no medications. Since discharge she has continued to have constant diarrhea, severe LLQ abdominal pain and vomiting. When she was first admitted to [facility] she had black color and red color stools, and states today that he started to get dark again. She states she had an EGD performed at [facility], but was only told she had an irritated ulcer. She sees Dr. Ford for outpatient GI, and states last colonoscopy was one year ago, with no problems. CBC/BMP: 05/28/16 0422 05/28/16 0422 Significant Findings Laboratory Tests Test 05/26/16 05/26/16 05/26/16 05/27/16 09:29 12:35 20:45 05:05 White Blood Count 17.8 TH/MM3 (4.0-11.0) Red Blood Count 3.61 MIL/MM3 3.68 MIL/MM3 (4.00-5.30) (4.00-5.30) Hemoglobin 10.6 GM/DL 11.2 GM/DL (11.6-15.3) (11.6-15.3) Hematocrit 32.9 % 33.9 % (35.0-46.0) (35.0-46.0) Neutrophils (%) (Auto) 86.7 % (16.0-70.0) Lymphocytes (%) (Auto) 7.6 % (9.0-44.0) Neutrophils # (Auto) 15.4 TH/MM3 (1.8-7.7) Chloride Level 111 MEQ/L 113 MEQ/L (98-107) (98-107) Carbon Dioxide Level 19.8 MEQ/L 19.5 MEQ/L (21.0-32.0) (21.0-32.0) Blood Urea Nitrogen 23 MG/DL (7-18) 22 MG/DL (7-18) Creatinine 1.10 MG/DL 1.22 MG/DL (0.50-1.00) (0.50-1.00) Estimat Glomerular Filtration 51 ML/MIN (>89) 45 ML/MIN (>89) Rate Troponin I LESS THAN 0.02 NG/ML (0.02-0.05) Procalcitonin 0.67 ng/mL (0.00-0.50) Monocytes (%) (Auto) 11.3 % (0.0-8.0) Monocytes # (Auto) 1.0 TH/MM3 (0-0.9) Random Glucose 73 MG/DL (74-106) Test 05/27/16 05/28/16 10:40 04:22 Stool C. difficile Toxin (PCR) POSITIVE (NEGATIVE) Red Blood Count 3.31 MIL/MM3 (4.00-5.30) Hemoglobin 10.4 GM/DL (11.6-15.3) Hematocrit 30.2 % (35.0-46.0) Neutrophils (%) (Auto) 75.9 % (16.0-70.0) Monocytes (%) (Auto) 10.4 % (0.0-8.0) Monocytes # (Auto) 1.0 TH/MM3 (0-0.9) Chloride Level 108 MEQ/L (98-107) Blood Urea Nitrogen 20 MG/DL (7-18) Creatinine 1.19 MG/DL (0.50-1.00) Estimat Glomerular Filtration 47 ML/MIN (>89) Rate Random Glucose 273 MG/DL (74-106) Imaging Last Impressions Abdomen/Pelvis CT 05/24/16 0000 Signed Impressions: Service Date/Time: Thursday, May 24, 2016 21:16 - CONCLUSION: Abnormally thickened segment of mid sigmoid with concentric thickening of the wall and scattered diverticula in the sigmoid colon. The findings suggest either diverticulitis or a focal segment of colitis. No drainable fluid collections seen. Usman Mcelroy MD PE at Discharge GENERAL: 60 yo F well nourished well developed patient, at the margin of the bed, appears in acute distress. SKIN: Warm and dry. HEAD: Atraumatic. Normocephalic. EYES: Pupils equal and round. No scleral icterus. No injection or drainage. ENT: No nasal bleeding or discharge. Mucous membranes pink and moist. NECK: Trachea midline. No JVD. CARDIOVASCULAR: Regular rate and rhythm. RESPIRATORY: No accessory muscle use. Clear to auscultation. Breath sounds equal bilaterally. GASTROINTESTINAL: Abdomen soft, left lower quadrant tenderness on palpation, nondistended. MUSCULOSKELETAL: Extremities without clubbing, cyanosis, or edema. No obvious deformities. NEUROLOGICAL: Awake and alert. No obvious cranial nerve deficits. Motor grossly within normal limits. Five out of 5 muscle strength in the arms and legs. Normal speech. PSYCHIATRIC: Appropriate mood and affect; insight and judgment normal. Pt update on day of discharge Patient in nad. She feels better. Says no diarrhea anymore. Abd pain is fairly controlled by meds No n/v/d/c. Tolerates food. Hospital Course 60 y/o female with history of HTN, DM, HLD, Hypothyroid, gerd and neuropathy presented to the ED with complaints of severe abdominal pain for 1 week, CT suspicious for diverticulitis. Diverticulitis -Abdominal/pelvis CT shows abnormal sigmoid colon with wall thickening and pericolonic inflammatory change most likely representing a colitis or possibly diverticulitis. No abscess, significant free fluid, or free air is present. Repeat CT with PO contrast obtained 05/24 with similar findings - leukocytosis improved but most likely it was elevated due to steroid use. - Patient has received cipro, zosyn, and flagyl, but had allergic reaction to Cipro and Zosyn. Currently on Ertapenem 05/23 - GI is ff pending records from [facility]. - Continue flagyl 500 mg tid Leukocytosis -most likely elevated due to solumedrol use during allergic reaction to antibiotics. -trending down. -continue to monitor. Pancreatitis -Mild elevation of lipase, improving. -Continue with supportive care as above. Questionable Black stools -Hemoccult stool negative. -Hemoglobin remained stable. -On IV Protonix. -patient can be scoped as outpatient if needed. -GI ff. CARLOS - Cr on admission 1.05, initially up trending, now improving - avoid nephrotoxic agents - continue IV hydration - continue to monitor closely Allergic reaction - likely to zosyn - s/p epi - cont solumedrol bid and benadryl BID DVT prophylaxis -Due to questionable black stools will hold Lovenox. -has SCDs. Discharge Planning Improving. continue with IV antibiotics per GI/ ID. Possible will discharge the patient tomorrow if improved and cleared by consultants. ABX at discharge: Ertapenem 1 gram IV q 24 hours Start Treatment: May 29, 2016 Stop Treatment: Jun 05, 2016 And PO flagyn 500 mg po TID Patient improved, she was DC home in stable condition to follow up as OP with PCP and consultants. Pt Condition on Discharge: Stable Discharge Disposition: Disch w/ Home Health Serv Discharge Time: > 30 minutes Discharge Instructions DIET: Follow Instructions for: Heart Healthy Diet Activities you can perform: Regular-No Restrictions Follow up Referrals: PCP Follow-up - 3-5 Days SNF/[facility]/ with [facility] New Medications: Epinephrine Inj (Epinephrine Inj) 1 Mg/Ml Inj 0.3 MG IV PUSH ONCE PRN ALLERGIC REACTION #1 VIAL Epinephrine Inj (Epinephrine Inj) 1 Mg/Ml Inj 0.3 MG SQ ONCE Give with any signs of respiratory distress. PRN ALLERGIC REACTION #1 VIAL Ertapenem Inj (Invanz Inj) 1 Gm Addvial 1000 MG IV DAILY Stop date: 06/05/2016 Infection #7 Ref 0 BAG Hydrocodone-Acetaminophen ([place]) 5-325 mg Tab 1 TAB PO Q6H PRN PAIN #15 Ref 0 TAB Hydrocortisone Inj (Solu-Cortef Inj) 250 Mg Inj 250 MG IV PUSH ONCE Give over 30-60 seconds. PRN ALLERGIC REACTION #1 Ref 0 VIAL Amlodipine (Norvasc) 5 Mg Tab 5 MG PO DAILY Blood Pressure Management #30 TAB Cetirizine (Cetirizine) 10 Mg Tab 10 MG PO HS Allergic Reaction #30 TAB Metronidazole (Flagyl) 500 Mg Tab 500 MG PO Q8HR Diverticulitis and Cdiff colit Days 21 Ref 0 TAB Continued Medications: Atorvastatin (Lipitor) 20 Mg Tab 20 MG PO HS Cholesterol Management #30 Ref 0 TAB Buspirone (Buspirone) 5 Mg Tab 5 MG PO BID Anxiety Ref 0 TAB Buspirone (Buspirone) 10 Mg Tab 25 MG PO TID Anxiety Ref [address] (Cymbalta DR) 60 Mg Capdr 60 MG PO DAILY #30 Ref 0 CAP Folic Acid (Folic Acid) 5 Mg Cap 5 MG PO DAILY Nutritional Supplement Ref 0 CAP Gabapentin (Gabapentin) 300 Mg Cap 300 MG PO HS #30 Ref 0 CAP Gemfibrozil (Gemfibrozil) 600 Mg Tab 600 MG PO BIDAC Take 30 minutes prior to breakfast and dinner. #60 Ref 0 TAB Glipizide (Glipizide) 5 Mg Tab 2.5 MG PO BIDAC Take 30 minutes before a meal Blood Sugar Management #60 Ref 0 TAB Levothyroxine (Synthroid) 25 Mcg Tab 25 MCG PO DAILY Thyroid #30 Ref 0 TAB Metoprolol Tartrate (Metoprolol Tartrate) 50 Mg Tab 50 MG PO BID #60 Ref 0 TAB Omeprazole (Omeprazole) 20 Mg Tab 20 MG PO DAILY #30 Ref 0 TAB Hui Ochoa MD May 29, 2016 07:38
--- NOTE | 2016-05-29 07:40 | HHI.FF ---
Face to Face Verification Diagnosis: (1) Adjustment disorder with depressed mood (2) Diverticulitis (3) Leukocytosis (4) Pancreatitis (5) Black stools (6) Allergic reaction caused by a drug (7) Colitis (8) C. difficile colitis Physical Therapy Order: Evaluate and Treat Home Health Nursing Order: Medical education Signs/symptoms of disease process Medication education-adverse effect Nursing assessment with vital signs IV medication administration I have seen patient Shelly Shepard on 05/29/16. My clinical findings support the need for the requested home health care services because: Ltd mobility - disease progression I certify that my clinical findings support that this patient is homebound because: Post-op weakness Hui Ochoa MD May 29, 2016 07:40
[2016-05-29] MEDS: LEVOTHYROXINE SODIUM 25 MCG TAB PO SCH (08:27)
[2016-05-29] MEDS: metroNIDAZOLE 500 MG TAB PO SCH ×2 (08:27→13:17)
[2016-05-29] MEDS: GEMFIBROZIL 600 MG TAB PO SCH ×2 (08:27→15:27)
[2016-05-29] MEDS: glipiZIDE 5 MG TAB PO SCH ×2 (08:28→15:27)
[2016-05-29] MEDS ORDERED: CETI10 PO (08:37)
[2016-05-29] MEDS ORDERED: AMLO5 PO (08:37)
[2016-05-29] MEDS ORDERED: NORC5TAB PO (08:39)
[2016-05-29 08:55] VITALS: BP 142/97; PULSE 53; RESP 16; TEMP 96.2; O2SAT 97
[2016-05-29] MEDS: diphenhydrAMINE HCL 25 MG CAP PO SCH (09:01)
[2016-05-29] MEDS: CETIRIZINE HCL 10 MG TAB PO SCH (09:01)
[2016-05-29] MEDS: busPIRone HCL 5 MG TAB PO SCH (09:01)
[2016-05-29] MEDS: amLODIPine BESYLATE 5 MG TAB PO SCH (09:01)
[2016-05-29] MEDS: FLUCONAZOLE 100 MG TAB PO SCH (09:01)
[2016-05-29] MEDS: DULoxetine HCl DR 60 MG CAP PO SCH (09:01)
[2016-05-29] MEDS: LACTOBACILLUS ACIDOPHILUS TAB PO SCH ×2 (09:01→13:17)
[2016-05-29] MEDS: METOPROLOL TARTRATE 50 MG TAB PO SCH (09:01)
[2016-05-29] MEDS: PANTOPRAZOLE SOD 20 MG DELAYED RELEASE TAB PO SCH (09:01)
[2016-05-29] MEDS: FOLIC ACID 1 MG TAB PO SCH (09:01)
[2016-05-29] MEDS: ACETAMINOPHEN/HYDROcodone 325 MG/5 MG TAB PO PRN ×2 (09:02→13:17)
[2016-05-29] MEDS: methylPREDNISolone SOD SUCC 40 MG/1 ML VIAL IV PUSH SCH (09:04)
[2016-05-29] MEDS: SODIUM CHLORIDE 0.9% FLUSH 10 ML FLUSH IV FLUSH SCH (09:04)
[2016-05-29 12:00] VITALS: BP 185/95; PULSE 66; RESP 18; TEMP 97.8; O2SAT 94
--- NOTE | 2016-05-29 17:32 | HHI.PR ---
Subjective Remarks Was seen news reporter. Patient in nad. She feels better. Says no diarrhea anymore. Abd pain is fairly controlled by meds No n/v/d/c. Tolerates food. Discussed discharge plan as well Objective Vitals Vital Signs Date Time Temp Pulse Resp B/P Pulse Ox O2 Delivery O2 Flow Rate FiO2 05/29/16 12:00 97.8 66 18 185/95 94 05/29/16 08:55 96.2 53 16 142/97 97 05/29/16 04:00 97.0 52 18 145/89 97 05/29/16 00:00 96.4 77 18 132/91 94 05/28/16 20:18 55 05/28/16 20:00 97.0 81 18 142/82 95 I/O 05/28/16 05/28/16 05/28/16 05/29/16 05/29/16 05/29/16 07:00 15:00 23:00 07:00 15:00 23:00 Intake Total 2330 ml 600 ml 870 ml 2287 ml Balance 2330 ml 600 ml 870 ml 2287 ml Intake Oral 600 ml 480 ml IV Total 2330 ml 870 ml 1807 ml # Voids 2 5 1 1 # Bowel Movements 0 Result Diagram: 05/28/1642105/28/16421 Objective Remarks GENERAL: 60 yo F well nourished well developed patient, at the margin of the bed, appears in acute distress. SKIN: Warm and dry. HEAD: Atraumatic. Normocephalic. EYES: Pupils equal and round. No scleral icterus. No injection or drainage. ENT: No nasal bleeding or discharge. Mucous membranes pink and moist. NECK: Trachea midline. No JVD. CARDIOVASCULAR: Regular rate and rhythm. RESPIRATORY: No accessory muscle use. Clear to auscultation. Breath sounds equal bilaterally. GASTROINTESTINAL: Abdomen soft, left lower quadrant tenderness on palpation, nondistended. MUSCULOSKELETAL: Extremities without clubbing, cyanosis, or edema. No obvious deformities. NEUROLOGICAL: Awake and alert. No obvious cranial nerve deficits. Motor grossly within normal limits. Five out of 5 muscle strength in the arms and legs. Normal speech. PSYCHIATRIC: Appropriate mood and affect; insight and judgment normal. A/P Problem List: (1) Diverticulitis ICD Code: K57.92 Status: Acute (2) Leukocytosis ICD Code: D72.829 Status: Acute (3) Pancreatitis ICD Code: K85.90 Status: Acute Assessment and Plan 60 y/o female with history of HTN, DM, HLD, Hypothyroid, gerd and neuropathy presented to the ED with complaints of severe abdominal pain for 1 week, CT suspicious for diverticulitis. Diverticulitis -Abdominal/pelvis CT shows abnormal sigmoid colon with wall thickening and pericolonic inflammatory change most likely representing a colitis or possibly diverticulitis. No abscess, significant free fluid, or free air is present. Repeat CT with PO contrast obtained 05/24 with similar findings - leukocytosis improved but most likely it was elevated due to steroid use. - Patient has received cipro, zosyn, and flagyl, but had allergic reaction to Cipro and Zosyn. Currently on Ertapenem 05/23 - GI is ff pending records from [facility]. - Continue flagyl 500 mg tid Leukocytosis -most likely elevated due to solumedrol use during allergic reaction to antibiotics. -trending down. -continue to monitor. Pancreatitis -Mild elevation of lipase, improving. -Continue with supportive care as above. Questionable Black stools -Hemoccult stool negative. -Hemoglobin remained stable. -On IV Protonix. -patient can be scoped as outpatient if needed. -GI ff. CARLOS - Cr on admission 1.05, initially up trending, now improving - avoid nephrotoxic agents - continue IV hydration - continue to monitor closely Allergic reaction - likely to zosyn - s/p epi - cont solumedrol bid and benadryl BID DVT prophylaxis -Due to questionable black stools will hold Lovenox. -has SCDs. Discharge Planning Improving. continue with IV antibiotics per GI/ ID. Possible will discharge the patient tomorrow if improved and cleared by consultants. Problem Qualifiers (1) Diverticulitis: Qualified Code: K57.32 - Diverticulitis of large intestine without perforation or abscess without bleeding (2) Pancreatitis: Hui Ochoa MD May 29, 2016 17:32
--- NOTE | 2016-06-02 13:40 | PQ ---
Physician Query Response Document PATIENT: EMANUEL DUNLAP : 1955 ADMIT DATE: 05/23/2016 2:40 AM DISCH DATE: 05/29/2016 6:16 PM RESPONDING PROVIDER #: [email or web address] QUERY TEXT: Clarification of Clinical Findings Physician?s Documentation Request This Form is Not a Permanent Document in the Medical Record Pt Name: EMANUEL DUNLAP MR #: [id number] Payor: MEDICARE Unit/Bed: [facility]- Adm Date: 05/23/2016 2:40:00 AM Reviewer: Han Acosta Ext. Query Date: 06/02/2016 7:35:00 AM Clarification of Clinical Findings By submitting this query, we are merely seeking further clarification of documentation to accurately reflect all conditions that you are monitoring, evaluating, treating or that extend the hospitalizati on or utilize additional resources of care. Please utilize your independent clinical judgment when ad dressing the question(s) below. Dear Doctor Hui Ochoa, The patient?s Clinical Indicators include: Dr. OCHOA, both I.D. and Gi physicians document CDIFF positive status. Attending does not. Patient was admitted with abdominal pain and diarrhea. Please review below question and answer to the best of your ability. THANK YOU Clarification of Clinical Findings PLEASE CHECK ALL THAT APPLY Was patient's abdominal pain and diahhrea due to : 1)unknown etiology 2)diverticulitis 3)C. Difficile 4)other(please specify) If you have any additional questions/comments and/or concerns please call [email or web address] PLEASE DOCUMENT ANY ADDITIONAL DIAGNOSES AND/OR SPECIFICITY IN THE PROGRESS NOTES AND/OR DISCHARGE [facility] MMARY. Agreed Disagree with the above request Need to discuss Query created by: Han Acosta on 06/02/2016 7:35 AM RESPONSE TEXT: Note: Patient with stool positive for C diff . She was already on Flagyl continued at discharge. Othe r antibiotic DC per ID recommendations. Electronically signed by: Hui Ochoa MD 06/02/2016 1:35 PM
== END 2016-05-29 18:16 | disposition home health service (06) | DRG 371 ==
LOC: NEPE 19:27 → NEDA 05-23 02:40 → NEDH 05-23 07:19 → HOCA 05-23 14:00
PROVIDERS: ADMIT Hospitalist; ATTEND Hospitalist
DX: A04.7 Enterocolitis due to Clostridium difficile (principal); K85.90 Acute pancreatitis without necrosis or infection, unspecified; K57.32 Diverticulitis of large intestine without perforation or abscess without bleeding; N17.9 Acute kidney failure, unspecified; I50.9 Heart failure, unspecified; J44.9 Chronic obstructive pulmonary disease, unspecified; R16.0 Hepatomegaly, not elsewhere classified; G62.9 Polyneuropathy, unspecified; E07.9 Disorder of thyroid, unspecified; I25.2 Old myocardial infarction; E11.9 Type 2 diabetes mellitus without complications; E78.5 Hyperlipidemia, unspecified; F60.6 Avoidant personality disorder; F43.10 Post-traumatic stress disorder, unspecified; G47.9 Sleep disorder, unspecified; F43.21 Adjustment disorder with depressed mood; E03.9 Hypothyroidism, unspecified; K21.9 Gastro-esophageal reflux disease without esophagitis; Z87.11 Personal history of peptic ulcer disease; Z62.810 Personal history of physical and sexual abuse in childhood; Z88.6 Allergy status to analgesic agent; Z88.3 Allergy status to other anti-infective agents; Z88.2 Allergy status to sulfonamides; I10 Essential (primary) hypertension; F17.210 Nicotine dependence, cigarettes, uncomplicated; L27.0 Generalized skin eruption due to drugs and medicaments taken internally; T36.8X5A Adverse effect of other systemic antibiotics, initial encounter; Y92.239 Unspecified place in hospital as the place of occurrence of the external cause; Z86.010 Personal history of colon polyps; Z86.19 Personal history of other infectious and parasitic diseases; I25.10 Atherosclerotic heart disease of native coronary artery without angina pectoris; I70.0 Atherosclerosis of aorta; D64.9 Anemia, unspecified; Z88.1 Allergy status to other antibiotic agents; Z88.0 Allergy status to penicillin; Z79.84 Long term (current) use of oral hypoglycemic drugs; T38.0X5A Adverse effect of glucocorticoids and synthetic analogues, initial encounter; D72.828 Other elevated white blood cell count
CPT/HCPCS: 36569; 74176; 74177; 76937; 80048; 80053; 80074; 82272; 83690; 84145; 84484; 85014; 85018; 85025; 85027; 86703; 87040; 87493; 93005; 96361; 96374; 96375; C9113; J0171; J1170; J1200; J1335; J1650; J2405; J2543; J2920; J7030; Q9963; Q9967